=== PATIENT | male | born 1935 | race Caucasian/White ===

== ENCOUNTER → 2021-06-29 | Outpatient (CLI) | payer MEDICARE ==
--- NOTE | 2021-06-29 12:24 | REP ---
INDICATION: SOB. COMPARISON: No comparison chest x-ray. TECHNIQUE: Two views.. FINDINGS: The lungs are well inflated and free of infiltrate. Pleural angles are sharp. The heart is near the upper range of normal in size. Cardiothoracic ratio measures 52.0%. The thoracic aorta is calcific and tortuous. No acute bony abnormality is seen. Pulmonary vasculature is not increased. There is a granulomatous calcification in the right lung apex. IMPRESSION: No active disease. Borderline heart size. Prior sternotomy. <Electronically signed by Castro Hameed > 06/29/21 [id number]
== END ==
LOC: M CLY 11:23
PROVIDERS: ATTEND Nurse Practitioner Family
DX: R06.02 Shortness of breath (principal)

== ENCOUNTER → 2021-06-29 | Outpatient (CLI) | payer BC, MEDICARE | LOC: M LABSMTC 10:39 | PROVIDERS: ATTEND Ophthalmology | DX: Z11.52 Encounter for screening for COVID-19 (principal) ==

== ENCOUNTER 2021-08-31 10:49 | Inpatient (IN) | payer MEDICARE ==
[~2021-08-31] VITALS: Ht 182.9 cm; Wt 76.3 kg
[2021-08-31 12:05] LABS: VENOUS BASE EXCESS -4.8 (-2.0-2.0); VENOUS HCO3 20.1 MEQ/L (23.0-27.0); VENOUS O2 SATURATION 90.7 % (60.0-80.0); VENOUS PARTIAL PRESSURE CO2 36.3 mmHg (38.0-50.0); VENOUS PARTIAL PRESSURE O2 57.2 mmHg (30.0-50.0); VENOUS PH 7.361 UNITS (7.330-7.430); VENOUS STANDARD HCO3 20.4 MEQ/L; VENOUS TOTAL CO2 21.2 MEQ/L (24.0-28.0)
[2021-08-31 12:19] LABS: BASO % 0.1 % (0.0-1.0); HEMATOCRIT 29.7 % (42.0-52.0); LYMPH # 0.8 10^3/uL (1.5-5.0); LYMPH % 5.3 % (24.0-44.0); MEAN CORPUSCULAR HEMOGLOBIN 32.9 pg (27.0-33.0); MEAN CORPUSCULAR HGB CONC 33.7 g/dl (32.0-36.5); MEAN CORPUSCULAR VOLUME 97.7 fl (80.0-96.0); MONO % 19.7 % (2.0-8.0); NEUTROPHILS % 73.7 % (36.0-66.0); PLATELET COUNT, AUTOMATED 117 10^3/uL (150-450); RED BLOOD COUNT 3.04 10^6/uL (4.30-6.10); WHITE BLOOD COUNT 14.9 10^3/uL (4.0-10.0)
--- NOTE | 2021-08-31 12:27 | REP ---
INDICATION: Altered Mental Status. COMPARISON: None. TECHNIQUE: Axial soft tissue and bone windows with coronal reconstructions provided FINDINGS: Lateral ventricles are midline symmetric and dilated but in proportion to the diffuse moderately severe cerebral atrophy. Third and 4th ventricles are also dilated in proportion. There is periventricular and subcortical low-density white matter change bilaterally suggesting chronic small vessel ischemic disease. Basal ganglia are symmetric and without acute finding. There is no vascular territory infarct, intra or extra-axial hemorrhage, mass or mass effect. Brainstem was intact. Cerebellum shows atrophy without mass or posterior fossa hemorrhage. Vascular calcifications are noted in both carotid siphons. Mastoid aeration is symmetric and normal. Visualized sinuses are clear. The skull base and calvarium show no fracture or focal lesion. IMPRESSION: 1. Moderately severe cortical atrophy and ventriculomegaly in proportion, age-appropriate. 2. No acute infarct, intracranial hemorrhage, mass, mass effect or edema. 3. Chronic small vessel white matter ischemic changes. 4. Skull base with mastoid and visualized sinuses unremarkable. Calvarium intact. Some atherosclerotic calcifications of the carotid siphon. Otherwise negative. <Electronically signed by Calderon Doshi > 08/31/21 [id number]
[2021-08-31 12:44] LABS: OSMOLALITY SERUM 304 MOSM/KG (280-301)
[2021-08-31 12:49] LABS: MONO # 2.9 10^3/uL (0.0-0.8)
[2021-08-31 12:50] LABS: RSV AMPLIFICATION NEGATIVE (NEGATIVE)
[2021-08-31 12:51] LABS: ALBUMIN 2.4 GM/DL (3.2-5.2); ALT/SGPT 101 U/L (12-78); BILIRUBIN,DIRECT 0.2 MG/DL (0.0-0.2); BILIRUBIN,TOTAL 0.4 MG/DL (0.2-1.0); BLOOD UREA NITROGEN 61 MG/DL (7-18); CALCIUM LEVEL 8.3 MG/DL (8.8-10.2); CARBON DIOXIDE LEVEL 20 MEQ/L (21-32); CHLORIDE LEVEL 109 MEQ/L (98-107); CK-MB VALUE MASS 4.1 NG/ML (<3.6); CPK CREATINE PHOSPHOKINASE 271 U/L (39-308); CREATININE FOR GFR 2.08 MG/DL (0.70-1.30); GLOMERULAR FILTRATION RATE 32.2 (>35); GLUCOSE, FASTING 105 MG/DL (70-100); MB/CK RELATIVE INDEX 1.51 (< OR =4); POTASSIUM SERUM 3.8 MEQ/L (3.5-5.1); SODIUM LEVEL 139 MEQ/L (136-145); THYROID STIMULATING HORMONE 0.632 uIU/ML (0.358-3.740); TOTAL PROTEIN 5.8 GM/DL (6.4-8.2); TROPONIN I < 0.02 NG/ML (< 0.10)
[2021-08-31] MEDS ORDERED: NS 1,000 ML IV ONE (14:40)
[2021-08-31] MEDS ORDERED: NS 1,000 ML IV SCH (14:45)
--- NOTE | 2021-08-31 15:17 | REP ---
INDICATION: fall. COMPARISON: 06/29/2021. TECHNIQUE: Single portable AP view of the chest was performed. FINDINGS: There is no acute infiltrate or pulmonary edema. There is mild bibasilar fibro atelectatic change. There is a calcified granuloma in the right upper lobe. The heart is not significantly enlarged. The mediastinal silhouette is unremarkable. The visualized osseous structures are intact.Multiple sternal wires are present. IMPRESSION: No acute pulmonary disease. <Electronically signed by Johnny Schmitt > 08/31/21 [id number]
[2021-08-31] MEDS ORDERED: FLON1SPR NARES (15:41)
[2021-08-31] MEDS ORDERED: COSO1SOL3 OU (15:41)
[2021-08-31] MEDS ORDERED: COLC0.6T47 PO (15:41)
[2021-08-31] MEDS ORDERED: RAMI1CAP21 PO (15:41)
[2021-08-31] MEDS ORDERED: CETI-24 PO (15:41)
[2021-08-31] MEDS ORDERED: AMLO1TAB24 PO (15:41)
[2021-08-31] MEDS ORDERED: ASPI81TA26 PO (15:41)
[2021-08-31] MEDS ORDERED: ROSU20TA5 PO (15:41)
[2021-08-31] MEDS ORDERED: FINA5TAB2 PO (15:41)
[2021-08-31] MEDS ORDERED: OYST500T92 PO (15:41)
[2021-08-31] MEDS ORDERED: TRAZ-186 PO (15:41)
[2021-08-31] MEDS ORDERED: DOCU100C16 PO (15:41)
[2021-08-31] MEDS ORDERED: QC A650T3 PO (15:41)
[2021-08-31] MEDS ORDERED: FLOM0.4C39 PO (15:41)
[2021-08-31] MEDS ORDERED: VITMTA PO (15:41)
[2021-08-31] MEDS ORDERED: VENTAER INH (15:41)
[2021-08-31] MEDS ORDERED: ISOS1TAB36 PO (15:41)
[2021-08-31] MEDS ORDERED: PREDOPD OU (15:41)
[2021-08-31] MEDS ORDERED: REFR1GEL OU (15:41)
[2021-08-31] MEDS ORDERED: NITR4TASL SL (15:41)
[2021-08-31] MEDS ORDERED: HOME MED LIST COMPLETE! XX SCH (15:45)
--- NOTE | 2021-08-31 16:06 | REP ---
INDICATION: SHAY. COMPARISON: None. TECHNIQUE: Real-time sonographic evaluation of the kidneys is performed. FINDINGS: There is increased echotexture of the kidneys suggesting medical renal disease. There is no hydronephrosis bilaterally. There is a cyst of the upper pole the right kidney 2.1 x 1.7 x 1.9 cm. The right kidney measures 10.8 x 3.6 x 5.2 cm. Left renal dimensions are 10.1 x 3.9 x 4.9 cm. The urinary bladder is unremarkable. Ureteral jets could not be visualized in the urinary bladder with Doppler color evaluation. IMPRESSION: Echogenic kidneys suggests medical renal disease. No hydronephrosis. <Electronically signed by Johnny Schmitt > 08/31/21 [id number]
--- NOTE | 2021-08-31 16:12 | HPEPDOC ---
[facility] Medical History & Physical Date of Admission Aug 31, 2021 Date of Service: Aug 31, 2021 History and Physical CHIEF COMPLAINT: "My legs gave out. 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 Patient has been using the furniture in his bedroom to get around and despite using his walker had fallen 7 times without any head trauma or loss of consciousness. Patient denies any chest pain pressure tightness palpitations but he did notice some dizziness prior to the fall he has had increasing confusion feeling like "things are not where they usually are." He has had poor coordination for the past 2 weeks he denied any nausea vomiting diarrhea abdominal pain bright red blood per rectum melena black tarry stools dysuria urgency frequency. In the emergency room he was found to have a creatinine of 2, afebrile, ekg sinus, chest x-ray no acute disease CT of the head negative. Hospitalist was asked to admit the patient for recurrent falls. PAST MEDICAL HISTORY: CAD [place] CABG x3 vessels glaucoma bilateral eye blindness dyslipidemia hypertension UTI benign prostatic hypertrophy actinic keratosis melanoma hemorrhoid hematuria anemia of chronic disease seasonal allergies tendinitis psoriasis skin cancer PAST SURGICAL HISTORY: CABG right eye, right eye drain for glaucoma SOCIAL HISTORY: Retired lives with at home denies recreational drug use tobacco or alcohol use FAMILY HISTORY: Noncontributory due to advanced age ALLERGIES: Please see below. REVIEW OF SYSTEMS: 10 point review of systems negative aside from positive findings in HPI HOME MEDICATIONS: Please see below. PHYSICAL EXAMINATION: VITAL SIGNS: See below GENERAL APPEARANCE: Postop right eye. Legally blind bilaterally. Speaks in full sentences no distress HEENT: No JVD thyromegaly cervical lymphadenopathy carotid bruit CARDIOVASCULAR: S1-S2 regular rate rhythm no S3 LUNGS: Clear to auscultation no wheezing rales or rhonchi ABDOMEN: Positive bowel sounds soft nontender nondistended EXTREMITIES: Multiple bruising bilateral upper and lower extremities particularly the elbow on the right no pitting edema LABORATORY DATA: See below. IMAGING: See below MICROBIOLOGY: Please see below. 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 Patient has been using the furniture in his bedroom to get around and despite using his walker had fallen 7 times without any head trauma or loss of consciousness. Patient denies any chest pain pressure tightness palpitations but he did notice some dizziness prior to the fall he has had increasing confusion feeling like "things are not where they usually are." He has had poor coordination for the past 2 weeks he denied any nausea vomiting diarrhea abdominal pain bright red blood per rectum melena black tarry stools dysuria urgency frequency. In the emergency room he was found to have a creatinine of 2, afebrile, chest x- ray no acute disease CT of the head negative. Hospitalist was asked to admit the patient for recurrent falls. Recurrent falls/gait imbalance/debility -Patient complains of his legs giving out on him. -Check MRI of the lumbar spine, MRI of the brain rule out cerebellar CVA -Assisted ambulation, fall precautions, activity as tolerated, PT OT evaluation. -Encourage early ambulation with assistance -Check orthostasis -Due to complaints of dizziness we will check a 2D echo Acute kidney injury Baseline creatinine of 1.2 with acute metabolic acidosis -In the setting of chronic benign prostatic hypertrophy. -IV fluid trial. -Check renal ultrasound rule out hydronephrosis. -Strict I's and O's. Daily weights. Renally dose all medications. Avoid nephrotoxins. -Check postvoid residual. -Continue home medications Anemia of chronic disease -Check iron studies, reticulocyte count, peripheral blood smear, stool for blood CAD history of CABG/[place] -Resume home meds bilateral eye blindness -Risk factor for recurrent falls PT OT dyslipidemia -Resume home meds hypertension -Check for orthostatic hypotension avoid diuretics if positive benign prostatic hypertrophy actinic keratosis/history of melanoma/history of psoriasis hemorrhoid seasonal allergies History of tendinitis History of skin cancer Vital Signs Vital Signs Date Time Temp Pulse Resp B/P (MAP) Pulse Ox O2 Delivery O2 Flow Rate FiO2 08/31/21 15:22 98 08/31/21 15:07 97 08/31/21 14:15 142/75 (97) 08/31/21 11:37 98.2 Laboratory Data Labs 24H Laboratory Tests 2 08/31/21 11:50: Immature Granulocyte % (Auto) 1.2, Neutrophils (%) (Auto) 73.7H, Lymphocytes (%) (Auto) 5.3L, Monocytes (%) (Auto) 19.7H, Eosinophils (%) (Auto) 0.0, Basophils (%) (Auto) 0.1, Neutrophils # (Auto) 11.0H, Lymphocytes # (Auto) 0.8L, Monocytes # (Auto) 2.9H, Eosinophils # (Auto) 0.0, Basophils # (Auto) 0.0, Nucleated Red Blood Cells % (auto) 0.0, Blood Gas Bicarbonate Standard 20.4, Venous Blood pH 7.361, Venous Blood Partial Pressure CO2 36.3L, Venous Blood Partial Pressure O2 57.2H, Venous Blood Total Carbon Dioxide 21.2L, Venous Blood HCO3 20.1L, Venous Blood Oxygen Saturation 90.7H, Venous Blood Base Excess -4.8L, Anion Gap 10, Glomerular Filtration Rate 32.2L, Osmolality 304H, Calcium Level 8.3L, Total Bilirubin 0.4, Direct Bilirubin 0.2, Aspartate Amino Transf (AST/SGOT) 121H, Alanine Aminotransferase (ALT/SGPT) 101H, Alkaline Phosphatase 101, Ammonia < 10, Total Creatine Kinase 271, Creatine Kinase MB 4.1H, Creatine Kinase MB Relative Index 1.51, Troponin I < 0.02, Total Protein 5.8L, Albumin 2.4L, Albumin/Globulin Ratio 0.7, Thyroid Stimulating Hormone (TSH) 0.632 08/31/21 11:51: Coronavirus (COVID-19)(PCR) NEGATIVE, Influenza Type A (RT-PCR) NEGATIVE, Influenza Type B (RT-PCR) NEGATIVE, Respiratory Syncytial Virus (PCR) NEGATIVE CBC/BMP Laboratory Tests 08/31/21 11:50 Home Medications Scheduled Acetaminophen (Acetaminophen 8 Hour) 650 Mg Tablet.er, 650 MG PO Q8H Amlodipine Besylate (Amlodipine Besylate) 5 Mg Tablet, 5 MG PO QHS Aspirin (Aspirin EC) 81 Mg Tablet.dr, 81 MG PO DAILY Calcium Carbonate/Vitamin D3 (Calcium 500-Vit D3 200 Tablet) 1 Each Tablet, 1 TAB PO BID TAKES AM/1430 Cetirizine HCl (Cetirizine HCl) 10 Mg Tablet, 10 MG PO DAILY Colchicine (Colchicine) 0.6 Mg Tablet, 0.3 MG PO DAILY Docusate Sodium (Docusate Sodium) 100 Mg Capsule, 100 MG PO BID Dorzolamide HCl/Timolol Maleat (Cosopt Eye Drops) 10 Ml Drops, 1 DROP OU BID Finasteride (Finasteride) 5 Mg Tablet, 5 MG PO DAILY Fluticasone Propionate (Flonase Allergy Relief) 9.9 Ml [place].susp, 2 SPRAY NARES DAILY Isosorbide Mononitrate (Isosorbide Mononitrate ER) 60 Mg Tab.er.24h, 60 MG PO DAILY Multivitamins (Thera M Plus Tablet) 1 Each Tablet, 1 TAB PO BID Prednisolone Acetate (Prednisolone Acetate 1% Opth Susp) 5 Ml Drops.susp, 1 DROP OU Q12H Ramipril (Ramipril) 1.25 Mg Capsule, 1.25 MG PO QHS Rosuvastatin Calcium (Rosuvastatin Calcium) 20 Mg Tablet, 20 MG PO QHS Tamsulosin HCl (Flomax) 0.4 Mg Capsule, 0.4 MG PO QHS Trazodone HCl (Trazodone HCl) 50 Mg Tablet, 50 MG PO QHS Scheduled PRN Albuterol Sulfate (Ventolin Hfa) 18 Gm Hfa.aer.ad, 2 PUFFS INH TID PRN for SOB/WHEEZING Carboxymethylcellulos/Glycerin (Refresh Optive Gel Eye Drops) 10 Ml Drops.gel, 1 DROP OU QID PRN for DRY EYES Nitroglycerin (Nitrostat) 0.4 Mg Tab.subl, 0.4 MG SL Q5MP PRN for CHEST PAIN Allergies Coded Allergies: meperidine (Verified Adverse Reaction, Mild, prolonged sleep, 08/31/21) A-FIB/CHADSVASC A-FIB History Current/History of A-Fib/PAF?: No Current PO Anticoag Therapy: No Age/Risk Factor Scoring CHADSVASC: CHADSVASC Response (Comments) Value Age Risk Factor Age >/= 75 years old 2 Gender Risk Factor Male 0 Hx of CHF No 0 Hx of HTN Yes 1 Hx of Stroke/TIA/or VTE No 0 Hx of Diabetes No 0 Hx of Vascular Disease No 0 Total 3 Treatment Treatment ordered: NONE RACIEL BRAGA MD Aug 31, 2021 16:01
[2021-08-31 19:50] LABS: FERRITIN 933 NG/ML (26-388); IRON (FE) 15 UG/DL (65-175); PERCENT SATURATION 10.3 % (19.7-50.0); TOTAL IRON BINDING CAPACITY 146 UG/DL (250-450)
--- NOTE | 2021-08-31 21:00 | REPVR ---
PROCEDURE INFORMATION: Exam: MR Head Without Contrast Exam date and time: 08/31/2021 7:22 PM Age: 86 years old Clinical indication: Weakness, extremity; Bilateral; Additional info: Le weakness s/o spinal stenosis TECHNIQUE: Imaging protocol: MR of the head without contrast. COMPARISON: CT Head without contrast 08/31/2021 11:59 AM FINDINGS: Brain: Nonspecific T2/FLAIR hyperintensities of the periventricular and deep subcortical white matter, most likely secondary to chronic small vessel ischemic change. No intracranial hemorrhage or extra-axial fluid collection. No evidence of mass effect or midline shift. No restricted diffusion to suggest acute infarct. Cerebral ventricles: Prominence of the ventricles and sulci, likely attributed to parenchymal volume loss. Bones/joints: Unremarkable. Paranasal sinuses: Left maxillary sinus retention cyst. Mastoid air cells: No mastoid effusion. Orbital cavity: Unremarkable. Soft tissues: Unremarkable. IMPRESSION: 1. No acute intracranial pathology. 2. Chronic findings, as above. Electronically signed by: Ervin Simmons On 08/31/2021 21:00:23 PM
--- NOTE | 2021-08-31 21:03 | REPVR ---
PROCEDURE INFORMATION: Exam: MR Lumbar Spine Without Contrast Exam date and time: 08/31/2021 7:46 PM Age: 86 years old Clinical indication: Weakness; Additional info: Le weakness s/o spinal stenosis TECHNIQUE: Imaging protocol: Multiplanar magnetic resonance images of the lumbar spine without intravenous contrast. COMPARISON: RENAL US 08/31/2021 3:35 PM FINDINGS: Limitations: Examination is limited by motion artifact. Vertebral body heights are maintained. No abnormal marrow signal. No cord compression. No abnormal cord signal. Conus medullaris terminates at the L1 level. Paravertebral soft tissues are unremarkable. L1-L2: No significant canal or foraminal narrowing. L2-L3: Broad-based disc bulge and facet hypertrophy cause mild canal narrowing and mild bilateral foraminal narrowing. L3-L4: Broad-based disc bulge and facet hypertrophy cause mild canal narrowing and mild bilateral foraminal narrowing. L4-L5: Broad-based disc bulge and facet hypertrophy cause mild canal narrowing and [id number] bilateral foraminal narrowing. L5-S1: Broad-based disc bulge and facet hypertrophy cause mild canal narrowing and [id number] bilateral foraminal narrowing. IMPRESSION: 1. No acute findings in the lumbar spine. 2. [id number] spondylotic changes of the lumbar spine, as detailed above. Electronically signed by: Ervin Simmons On 08/31/2021 21:03:08 PM
[2021-08-31 22:50] VITALS: BP 150/78
[2021-08-31] MEDS: NS 1,000 ML IV SCH (23:32)
[2021-09-01] MEDS ORDERED: ALBUTEROL 90 MCG/ACT 8GM HFA INHALER INH PRN (04:40)
[2021-09-01] MEDS: ROSUVASTATIN 10 MG TAB (CRESTOR) PO SCH ×2 (05:05→20:22)
[2021-09-01 05:38] LABS: HEMATOCRIT 31.8 % (42.0-52.0); HEMOGLOBIN 10.7 g/dl (13.5-17.5); MEAN CORPUSCULAR HEMOGLOBIN 32.4 pg (27.0-33.0); MEAN CORPUSCULAR HGB CONC 33.6 g/dl (32.0-36.5); MEAN CORPUSCULAR VOLUME 96.4 fl (80.0-96.0); PLATELET COUNT, AUTOMATED 136 10^3/uL (150-450); WHITE BLOOD COUNT 15.3 10^3/uL (4.0-10.0)
[2021-09-01 06:00] VITALS: BP 114/77
[2021-09-01 06:00] LABS: ALBUMIN 2.3 GM/DL (3.2-5.2); BILIRUBIN,DIRECT 0.2 MG/DL (0.0-0.2); BILIRUBIN,TOTAL 0.6 MG/DL (0.2-1.0); CALCIUM LEVEL 8.2 MG/DL (8.8-10.2); CREATININE FOR GFR 1.57 MG/DL (0.70-1.30); GLOMERULAR FILTRATION RATE 44.6 (>35); POTASSIUM SERUM 3.6 MEQ/L (3.5-5.1)
[2021-09-01 07:26] LABS: LYMPHOCYTES 7 % (16-44); MONOCYTES 16 % (0-5); NEUTROPHILS 77 % (28-66)
[2021-09-01 07:27] LABS: ANISOCYTOSIS 1+; PLATELET ESTIMATE NORMAL (NORMAL)
[2021-09-01] MEDS ORDERED: cefTRIAXone SOD 2 GM in D5W MINI-BAG PLUS 50 ML IV SCH ×2 (08:55→09:00)
[2021-09-01] MEDS ORDERED: ASPIRIN 81MG ENTERIC TABLET PO SCH (09:00)
[2021-09-01] MEDS: ISOSORBIDE MON. (IMDUR) 60 MG XR TAB PO SCH (09:00)
[2021-09-01] MEDS: CALCIUM/VITAMIN D 500 MG TAB PO SCH ×2 (09:38→16:40)
[2021-09-01] MEDS: CETIRIZINE (ZyrTEC) 10 MG TAB PO SCH (09:38)
[2021-09-01] MEDS: DOCUSATE SODIUM 100MG CAPSULE PO SCH ×2 (09:38→20:22)
[2021-09-01] MEDS: MULTIVITAMINS/MINERALS THERAP 1 TAB PO SCH ×2 (09:38→20:22)
[2021-09-01] MEDS: prednisoLONE ACET 1% OPHTH SUSP 5ML OU SCH ×2 (09:39→20:23)
[2021-09-01] MEDS: NS 1,000 ML IV SCH ×3 (09:41→20:22)
[2021-09-01] MEDS: FLUTICASONE PROP 0.05% NASAL SPRAY 16 GM (FLONASE) NARES SCH (09:41)
[2021-09-01] MEDS: GASTROGRAFIN SOLUTION 30ML PO SCH ×2 (10:05→10:32)
[2021-09-01] MEDS: COSOPT OCUMETER PLUS 10ML (DORZOLAMIDE/TIMOLOL) OU SCH ×2 (10:05→20:23)
--- NOTE | 2021-09-01 10:47 | IPN ---
PROGRESS NOTE DATE: 09/01/2021 SUBJECTIVE: The patient had a fever of 101, no complaints of chills, had slight cough, no shortness of breath, no dysuria, urgency, frequency, nausea, headache, diarrhea. OBJECTIVE: Vital signs: Temperature 99.8, T max 101, respiratory rate 17, blood pressure 114/77, 94% on room air, pulse of 104, sinus rhythm. Generally, patient is blind, awake, alert, oriented, answering questions appropriately, flat on the bed while having a bedside echo done. He has no JVD, thyromegaly, cervical lymphadenopathy, dry mucous membranes, no stridor. Lungs: Diminished but no wheezing or rales. Heart: S1, S2, sinus tachycardia. Aortic area has a systolic ejection murmur, 3/6 radiating to the carotid. Abdomen: Soft, nontender, nondistended, positive bowel sounds. Extremities: No pitting edema. Laboratory data, imaging studies, microbiology have been reviewed, notable for a white count of 15,000, creatinine of 1.5 from admission creatinine of 2.08, AST elevated at 154, ALT of 140. Hepatitis serology: Pending. ASSESSMENT AND PLAN: This is an 86-year-old male with history of bilateral blindness with glaucoma, status post right eye drain, CABG x3, moderate aortic stenosis, CAD and hypercholesterolemia, hypertension, prior history of UTI and BPH, presented with recurrent falls at home seven times in the past two weeks and twice the day before hospital presentation. The patient was found to have a creatinine of 2 from baseline of 1.2, admitted for dehydration with acute kidney injury, developed a fever of 101, empirically treated for UTI, awaiting urine culture result. IMPRESSION: 1. Recurrent falls. The patient's MRI of the brain, MRI of the lumbar spine are negative. Assisted ambulation, fall precautions, activity as tolerated, PT, OT evaluation, encourage early ambulation but with assistance. Orthostasis were negative. Avoid hypotension due to moderate aortic stenosis which has caused recurrent syncope, CHF and acute coronary syndrome. 2. Moderate aortic stenosis, follows with Dr. Way in the office. Await official 2D echo report, currently on IV fluids. Patient was dehydrated with a creatinine of 2.05 which could have precipitated dizziness subsequently causing the mechanical falls at home. The patient should avoid hypotension. Therefore, holding parameters have been placed on his isosorbide, encourage oral intake, still on IV fluids with improving creatinine. 3. Acute kidney injury. Baseline creatinine of 1.2 with acute metabolic acidosis, resolving. The patient has history of chronic benign prostatic hypertrophy. Renal ultrasound showed hydronephrosis, still on IV fluids with improvement, renally dose all medications and avoid nephrotoxins. Holding parameters have been placed on the isosorbide to prevent hypotension in light of moderate aortic stenosis. 4. Anemia of chronic disease. No acute indication for RBC transfusion. Denies any active GI bleed. 5. History of CAD, CABG, [place]. Resumed on home medications but holding parameters placed due to moderate aortic stenosis to prevent hypotension. 6. Dyslipidemia. Resumed on home medications. 7. Hypertension, controlled. 8. History of BPH. Avoid orthostasis and hypotension. 9. Legally blind causing mechanical falls. Patient's is not home 20/05. He may need placement. PFS consulted.
[2021-09-01] MEDS ORDERED: SODIUM CHLORIDE NASAL 0.65% SPRAY BTL (OCEAN) PRN (12:00)
[2021-09-01] MEDS ORDERED: ACETAMINOPHEN 500 MG TAB PO ONE (12:00)
[2021-09-01 12:44] LABS: HEPATITIS B CORE ANTIBODY IGM NEGATIVE (NEGATIVE); HEPATITIS B SURFACE ANTIGEN NEGATIVE (NEGATIVE); HEPATITIS C VIRUS ABY INDEX < 0.0 INDEX (<0.8)
--- NOTE | 2021-09-01 13:04 | ECHO ---
ECHOCARDIOGRAM DATE OF PROCEDURE: 09/01/2021 Age: Gender: Height: 183 cm Weight: 80 kg REFERRING PHYSICIAN: Dr. Marilu Macdonald. INDICATION: Abnormal ECG. MEASUREMENTS: 2D Measurements: LVOT 2.1 cm Interventricular septum 1.06 cm Posterior wall 1.10 cm Left ventricle diastole 4.6 cm Left ventricle systole 3.5 cm Left atrium 4.4 cm Left atrium volume index 78 cm Aortic root 3.5 cm Proximal ascending aorta 3.6 cm Doppler Measurements: Moderate aortic stenosis Mild aortic regurgitation Aortic valve velocity 365 cm/s Peak aortic valve gradient 53 mmHg Mean aortic valve gradient 39 mmHg Aortic valve VTI 71.4 cm LVOT velocity 105 cm/s LVOT VTI 19.4 cm Very mild mitral regurgitation No mitral stenosis Mitral E velocity 99.8 cm/s Mitral A velocity 127 cm/s Mitral deceleration time 90 msec Trace tricuspid regurgitation Very mild pulmonic regurgitation Pulmonary artery acceleration time 81 msec Pulmonary artery systolic pressure 43 mmHg MITRAL ANNULAR TISSUE DOPPLER E prime septal 5.6 cm/s, E prime lateral 8.5 cm/s DESCRIPTION: Rhythm was sinus. This was a moderately technically difficult echocardiogram. Subcostal images were technically difficult. No pericardial effusion. This was a 2D, M-mode, color flow Doppler, and pulsed wave Doppler examination including mitral annular tissue Doppler. CONCLUSIONS: 1. Severe focal thickening and focal calcific deposits of a 3-cusp aortic valve. Moderate reduction in aortic cusp mobility. Moderate aortic stenosis and mild aortic regurgitation. 2. Normal left ventricle internal dimensions and wall thickness. Normal regional LV wall motion and wall thickening. Normal LV systolic function. LVEF 55-60% by visual assessment. Grade 1 LV diastolic dysfunction (impaired relaxation filling pattern). 3. Severe left atrial dilatation by left atrial volume index. 4. Suggestive of moderate elevation of pulmonary artery systolic pressure. 5. Very mild mitral annular calcification with very mild mitral regurgitation. MTDD
[2021-09-01] MEDS: SODIUM CHLORIDE 0.9% NASAL GEL 15GM (AYR) SCH ×3 (13:11→20:23)
--- NOTE | 2021-09-01 13:22 | REP ---
INDICATION: fever or unknown origin. COMPARISON: None. TECHNIQUE: Noncontrast scanning through chest with coronal and sagittal reconstructions provided FINDINGS: The lung stratton are well inflated. There is no pleural effusion, pleural thickening, acute infiltrate or parenchymal mass. There is calcified granuloma in the right upper lobe in the subpleural region on image 26. No other nodules are identified. Heart is not enlarged there is atherosclerotic calcification of the aorta without aneurysm. There are calcified right hilar lymph nodes. Coronary artery calcifications are noted. Calcifications at the aortic root and valve plane are seen no pathologic sized mediastinal or hilar adenopathy. No axillary or supraclavicular mass sternotomy wires are seen the healed sternum. Mediastinal clips evident. Clavicles, visualized scapulae, humeral heads, ribs, spine and posterior elements are without acute fracture or destructive lesion. There are degenerative changes in the spine and shoulders. No hiatal hernia. The upper abdominal structures will be discussed in the CT abdomen report to follow. IMPRESSION: 1. Lung stratton without any acute finding. Some old granulomatous disease in right hilar nodes as well as a calcified granuloma in the right upper lobe. 2. Prior sternotomy with mediastinal clips, some coronary calcifications and no aortic aneurysm. 3. Some degenerative changes in the spine. No acute bony finding. No significant abnormality. <Electronically signed by Calderon Doshi > 09/01/21 [id number]
--- NOTE | 2021-09-01 13:36 | REP ---
INDICATION: fever or unknown origin. COMPARISON: No pertinent prior studies here. TECHNIQUE: Oral Gastrografin mixture 10 mL in 290 mL flavored water for 2 doses per our bowel contrast protocol. Then scanning through abdomen and pelvis with coronal and sagittal reconstructions. FINDINGS: CT abdomen: There is no hiatal hernia. Stomach with some oral contrast within but no gross mass. No hepatomegaly or biliary dilatation. The gallbladder is quite distended and adjacent to the gallbladder there is hypodensity in the liver in an area 4.2 by 2.3 by 3.6 cm. I am suspicious that this represents an hepatic abscess. Some pericholecystic stranding of fat but no generalized ascites. There are no calcifications in the gallbladder but there are a few scattered calcifications in the liver likely old granulomas. Common duct in the howard hepatis and pancreas grossly intact. Adrenal glands grossly intact. Spleen unremarkable. Scattered stool and gas in the colon without signs of colitis or diverticulitis. Appendix is seen and normal. Atherosclerotic calcification of the aorta with mild infrarenal dilatation up to 3.3 cm AP diameter of the abdominal aorta. Small bowel loops show oral contrast throughout. Lung window review of all CT slices shows no perforation or free air. Bone windows show degenerative changes in the lower lumbar spine the less in the upper lumbar and thoracic region without compression fractures. Facet arthropathy lower lumbar spine. Lower ribs intact. CT pelvis: Sacrum, SI joints pelvis and hips show some minor degenerative change without destructive lesion or fracture. Distal left colon and sigmoid without acute finding. Small bowel loops with oral contrast and unremarkable atherosclerotic calcification and ectasia of the iliac vessels without aneurysm. No pelvic lymphadenopathy or free fluid. Bladder partially filled and the prostate elevates its base. No pelvic lymphadenopathy or free fluid. No ventral or inguinal hernia. Few scattered diverticula in the sigmoid. IMPRESSION: 1. Gallbladder distended with hyperdense bile and pericholecystic edema in the fat surrounding and also a 4.2 x 3.6 x 2.2 cm subcapsular low-density focus in the liver that is suspicious for liver abscess in this patient with fever. No biliary dilatation or adjacent ascites. I see no calcified gallstones. Pancreas, adrenal glands, kidneys and spleen grossly intact. No colitis, diverticulitis stricture or mass. 2. No adenopathy. Bladder without abnormality except for enlargement of the prostate elevating it is base. No stone or dilated ureter. <Electronically signed by Calderon Doshi > 09/01/21 [id number]
[2021-09-01 14:00] VITALS: BP 125/64
--- NOTE | 2021-09-01 15:46 | IPNPDOC ---
Date Seen The patient was seen on 09/01/21. Progress Note addendum to progress note: fever: Ct abd/pelvis 09/01/21 1. Gallbladder distended with hyperdense bile and pericholecystic edema in the fat surrounding and also a 4.2 x 3.6 x 2.2 cm subcapsular low-density focus in the liver that is suspicious for liver abscess in this patient with fever. No biliary dilatation or adjacent ascites. I see no calcified gallstones. Pancreas, adrenal glands, kidneys and spleen grossly intact. No colitis, diverticulitis stricture or mass. 2. No adenopathy. Bladder without abnormality except for enlargement of the prostate elevating it is base. No stone or dilated ureter. <Electronically signed by Calderon Doshi > 09/01/21 1332 plan: increase abx coverage to include anaerobes. dc ceftriaxone iv zosyn renally dosed. surgical consult to determine need for drain. VS, I&O, 24H, Fishbone Vital Signs/I&O Vital Signs Date Time Temp Pulse Resp B/P (MAP) Pulse Ox O2 Delivery O2 Flow Rate FiO2 09/01/21 14:00 97.3 89 18 125/64 (84) 97 Room Air I&O- Last 24 Hours up to 6 AM 09/01/21 06:00 Intake Total 1360 ml Output Total 1100 ml Balance 260 ml Laboratory Data 24H LABS Laboratory Tests 2 08/31/21 23:35: Lactic Acid Level 0.8 09/01/21 04:48: Urine Color YELLOW, Urine Appearance CLEAR, Urine pH 6.0, Urine Specific [place] 1.011, Urine Protein 2+H, Urine Glucose (UA) NEGATIVE, Urine Ketones NEGATIVE, Urine Blood 3+H, Urine Nitrite NEGATIVE, Urine Bilirubin NEGATIVE, Urine Urobilinogen 0.2, Urine Leukocyte Esterase NEGATIVE, Urine WBC (Auto) 12H, Urine RBC (Auto) 11H, Urine Hyaline Casts (Auto) 0, Urine Bacteria (Auto) NEGATIVE, Urine Squamous Epithelial Cells 0, Urine Sperm (Auto) 09/01/21 05:03: Neutrophils (%) (Auto) , Nucleated Red Blood Cells % (auto) 0.0, Neutrophils 77H, Lymphocytes (Manual) 7L, Monocytes (Manual) 16H, Anisocytosis 1+, Platelet Estimate NORMAL, Anion Gap 6L, Glomerular Filtration Rate 44.6, Calcium Level 8 .2L, Total Bilirubin 0.6, Direct Bilirubin 0.2, Aspartate Amino Transf (AST/SGOT) 154H, Alanine Aminotransferase (ALT/SGPT) 140H, Alkaline Phosphatase 133H, Total Protein 6.0L, Albumin 2.3L, Albumin/Globulin Ratio 0.6 09/01/21 10:50: Hepatitis A IgM Antibody NEGATIVE, Hepatitis B Surface Antigen NEGATIVE, Hepatitis B Core IgM Antibody NEGATIVE, Hepatitis C Antibody Index < 0.0 CBC/BMP Laboratory Tests 09/01/21 05:03 Microbiology Microbiology 09/01/21 Stool Occult Blood (CAL) - Final, Complete 09/01/21 Urine Culture, Received Pending 08/31/21 Blood Culture, Received Pending 08/31/21 Blood Culture, Received Pending RACIEL BRAGA MD Sep 01, 2021 15:46
[2021-09-01] MEDS ORDERED: guaiFENesin DM LIQ 10ML UD PO ONE (16:05)
[2021-09-01] MEDS: PIPERACILLIN/TAZOBACTAM SOD 2.25 GM in D5W MINI-BAG PLUS 50 ML IV SCH ×2 (16:40→23:16)
[2021-09-01] MEDS: TAMSULOSIN 0.4 MG CAP PO SCH (20:22)
[2021-09-01] MEDS: guaiFENesin DM LIQ 10ML UD PO PRN (20:23)
[2021-09-01] MEDS: FINASTERIDE 5 MG TAB PO SCH (20:25)
--- NOTE | 2021-09-01 20:38 | ECGEPIP ---
[facility] - ED Test Date: 2021-08-31 Pat Name: NEIL NOVAK Department: Room: - Gender: Male Medical Oncologist: JOSE RAUL : 1935 Requested By: Diana Dorman Order Number: [id number] Reading MD: Diana Dorman Measurements Intervals [place] Rate: 88 P: 41 AL: 190 QRS: -35 QRSD: 116 T: 74 QT: 358 QTc: 433 Interpretive Statements Normal sinus rhythm Possible Left atrial enlargement Left axis deviation Left ventricular hypertrophy with QRS widening and repolarization abnormality ( R in aVL , [place] product ) No prior Electronically Signed on 09-01-2021 20:38:31 EDT by Diana Dorman
[2021-09-01 22:00] VITALS: BP 132/82
[2021-09-01] MEDS: BENZONATATE 100MG CAPSULE PO PRN (23:16)
[2021-09-02] MEDS: PIPERACILLIN/TAZOBACTAM SOD 2.25 GM in D5W MINI-BAG PLUS 50 ML IV SCH ×4 (04:19→22:12)
[2021-09-02 06:07] LABS: BASO % 0.1 % (0.0-1.0); EOS # 0.1 10^3/uL (0.0-0.5); EOS % 0.6 % (0.0-3.0); HEMATOCRIT 29.3 % (42.0-52.0); LYMPH % 6.4 % (24.0-44.0); MEAN CORPUSCULAR HEMOGLOBIN 31.9 pg (27.0-33.0); MEAN CORPUSCULAR HGB CONC 34.1 g/dl (32.0-36.5); MEAN CORPUSCULAR VOLUME 93.6 fl (80.0-96.0); MONO # 2.9 10^3/uL (0.0-0.8); MONO % 17.8 % (2.0-8.0); PLATELET COUNT, AUTOMATED 137 10^3/uL (150-450); RED BLOOD COUNT 3.13 10^6/uL (4.30-6.10); WHITE BLOOD COUNT 16.3 10^3/uL (4.0-10.0)
[2021-09-02 06:17] LABS: CALCIUM LEVEL 7.6 MG/DL (8.8-10.2); CREATININE FOR GFR 1.47 MG/DL (0.70-1.30); GLOMERULAR FILTRATION RATE 48.1 (>35); POTASSIUM SERUM 3.5 MEQ/L (3.5-5.1)
[2021-09-02 07:47] LABS: C REACTIVE PROTEIN QUANTITATIV 17.2 MG/DL (0.00-0.30)
[2021-09-02] MEDS ORDERED: VANCOMYCIN HCL 1,000 MG, VIAL MATE ADAPTER 1 EACH in NS 250 ML IV ONE (08:00)
[2021-09-02] MEDS: MULTIVITAMINS/MINERALS THERAP 1 TAB PO SCH ×2 (08:19→20:27)
[2021-09-02] MEDS: CALCIUM/VITAMIN D 500 MG TAB PO SCH ×2 (08:19→14:30)
[2021-09-02] MEDS: ISOSORBIDE MON. (IMDUR) 60 MG XR TAB PO SCH (08:22)
[2021-09-02] MEDS: FINASTERIDE 5 MG TAB PO SCH (08:22)
[2021-09-02] MEDS: CETIRIZINE (ZyrTEC) 10 MG TAB PO SCH (08:22)
[2021-09-02] MEDS: DOCUSATE SODIUM 100MG CAPSULE PO SCH ×2 (08:22→20:27)
[2021-09-02] MEDS: SODIUM CHLORIDE 0.9% NASAL GEL 15GM (AYR) SCH ×4 (08:23→20:27)
[2021-09-02] MEDS: COSOPT OCUMETER PLUS 10ML (DORZOLAMIDE/TIMOLOL) OU SCH ×2 (08:24→20:26)
[2021-09-02] MEDS: prednisoLONE ACET 1% OPHTH SUSP 5ML OU SCH ×2 (08:24→20:26)
[2021-09-02] MEDS: FLUTICASONE PROP 0.05% NASAL SPRAY 16 GM (FLONASE) NARES SCH (08:24)
--- NOTE | 2021-09-02 08:27 | REP ---
INDICATION: sob. COMPARISON: AP CXR 08/31/2021, CT 09/01/2021. TECHNIQUE: AP portable seated FINDINGS: Sternotomy wires again seen. Heart size not enlarged. The aorta is mildly tortuous but without gross aneurysm. No abnormal widening of the mediastinum. Lung stratton are well inflated. There is no pleural effusion, lateral pleural thickening or apical scarring. There is an old the calcified granuloma in the periphery of the right upper lobe unchanged. No dense consolidation or parenchymal mass. Some degenerative changes in the spine and shoulders, mild. IMPRESSION: 1. No acute cardiopulmonary change, stable chest. <Electronically signed by Calderon Doshi > 09/02/21 [id number]
[2021-09-02 09:30] LABS: ERYTHROCYTE SEDIMENTATION RATE 106 mm/hr (0-20)
[2021-09-02] MEDS: NS 1,000 ML IV SCH (09:54)
[2021-09-02] MEDS ORDERED: VANCOMYCIN HCL 500 MG in D5W MINI-BAG PLUS 100 ML IV ONE (10:00)
--- NOTE | 2021-09-02 10:53 | IPN ---
PROGRESS NOTE DATE: 09/02/2021 SUBJECTIVE: Patient is legally blind. Patient has had no fever. T-max was 100.6 at 1:35 on 09/01/2021. Patient denies any chills, nausea, vomiting. He complains of right suprapubic discomfort. Urine output was adequate, was 1750 yesterday, 500 since midnight on I.V. fluids. Creatinine is 1.47. OBJECTIVE: Vital signs: Temperature 98.3, pulse 92, respiratory rate 17, blood pressure 133/75, 96% on room air. General: Awake, alert, oriented to person, place and time. HEENT: He is legally blind. Neck: No JVD, no thyromegaly. Lungs: Diminished, fine crackles. Heart: S1 and S2 sinus rhythm. Abdomen: Soft, slightly tender right suprapubic area. No guarding or rebound. Positive bowel sounds. Extremities: No cyanosis or clubbing. Trace edema bilaterally. LABORATORY DATA/IMAGING STUDIES/MICROBIOLOGY: Please see the chart. Creatinine is 1.47 from admission creatinine of 2.08 and baseline creatinine of 1.2. Chest x-ray: No acute cardiopulmonary process. CT abdomen and pelvis: 4.2 x 3.6 x 2.2 subcapsular low density focus in the liver suspicious for liver abscess. ASSESSMENT: This is an 86-year-old male admitted due to recurrent falls at home on 08/31/2021 feeling like his legs were giving out. MRI of the brain, MRI of the lumbar spine were both negative. Patient developed a fever of 101. CT chest, abdomen and pelvis performed, found a possible liver abscess, given broad spectrum antibiotics renally dosed with I.V. Zosyn and vancomycin. Patient was dehydrated with a creatinine of 2.08 on admission, responded well to I.V. fluids with no fluid overload. Chest x-ray clear of edema with creatinine of 1.37 today. ACTIVE ISSUES/PLAN: 1. Liver abscess: Patient is currently broadly covered with I.V. Zosyn renally dosed by pharmacy. Vanco was added. Infectious disease specialist consult on Saturday. IR drainage on Saturday, Dr. Baeza was consulted. General surgery following, recommended drainage as well as I.V. antibiotics for now. Patient has remained afebrile with appropriate blood pressure, appears to be stable. Continue with antibiotics for now. 2. Recurrent falls: ARU has been consulted. MRI of the brain and MRI lumbar spine are both negative for a cerebellar CVA or a lumbar spinal stenosis that could be causing his lower extremity weakness. Patient is blind and has no support at home. Patient's is in and out of the house and he is left alone most of the time per the patient. ARU consult. Patient is being treated for a liver abscess and acute kidney injury is just resolving all of which were properly contributing to significant debility causing recurrent falls at home. No signs of any fractures on imaging studies. 3. 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 4. History of CAD, ID, CABG times 3 with moderate aortic stenosis noted on 2D echo: At this time patient is volume and preload dependent. Holding parameters have been placed on his isosorbide. We will continue with mild hydration at 75 mL per hour for his renal failure, monitor for respiratory distress otherwise resume all home medications. Aspirin has been held due to drain placement on Saturday. 5. Hypertension: Currently 120-130. Holding parameters placed on patient's isosorbide. 6. Anemia of chronic disease with hemodilution and anemia: Patient received I.V. fluids over the past 2 days. No acute indication for RBC transfusion. 7. Dyslipidemia: Chronic. 8. History of BPH: Resumed on his home medications. Initially his Proscar and finasteride were held due to complaints of recurrent falls. 9. Moderate aortic stenosis: Sees Dr. Way as an outpatient. Avoid severe hypotension or dehydration which could precipitate syncope, congestive heart failure and acute coronary syndrome. ZOLTAN
[2021-09-02] MEDS: guaiFENesin DM LIQ 10ML UD PO PRN ×3 (11:06→22:12)
--- NOTE | 2021-09-02 12:21 | CR.PDOC ---
General Surgery Consultation Date of Consultation 09/02/21 History and Physical CONSULT REPORT FOR: Dr. Macdonald (hospitalist service) REASON FOR CONSULTATION: Cholecystitis, liver abscess HISTORY OF PRESENT ILLNESS: Patient is an 86-year-old male admitted for weakness, frequent falling which has been happening for about 3 weeks now, prog ressive. He was noted to have fever and on febrile work-up he had a CT abdomen pelvis demonstrating cholecystitis as well as what most likely is a liver abscess. He denies any ongoing abdominal pain, nausea or vomiting. He does report some mild anorexia but he has not had any food intolerance, diarrhea, constipation fevers or chills. Currently denies any abdominal discomfort was able to tolerate his clear liquids. He does have leukocytosis. He denies any prior biliary colic type postprandial symptoms. PAST MEDICAL HISTORY: 1. Coronary artery disease status post CABG 2. Glaucoma, patient has bilateral eye blindness 3. Hypertension 4. Dyslipidemia 5. BPH. PAST SURGICAL HISTORY: INCLUDES: 1. CABG 2. Placement of right eye drain for glaucoma ALLERGIES: Please see below. FAMILY HISTORY: Noncontributory. HOME MEDICATIONS: Please see below. REVIEW OF SYSTEMS: Patient lives at home. He has bilateral line blindness. He seems he has very well cooped up with us as he is able to feed himself. He needs help with moving around mainly due to the blindness. Denies any chest pains. Denies any shortness of breath. He denies any prior symptoms similar to this. Denies any prior biliary colic symptoms. No prior history of stroke. Denies dysuria, hematuria nocturia. Denies any history of diabetes or thyroid problems. Denies any bleeding or clotting disorder. PHYSICAL EXAMINATION: VITALS SIGNS: Please see below. GENERAL APPEARANCE: Patient seen laying in bed. He looks fairly comfortable. In no acute distress. SKIN: Warm and dry, no jaundice. HEENT: Normocephalic. Anicteric sclerae. Lips and mucosa appear moist. NECK: [Supple, no thyromegaly. No obvious jugular venous distention]. LUNGS: [Clear to auscultation bilaterally. No wheezing appreciated]. HEART: [No chest wall abnormalities. Regular rate and rhythm with no murmurs appreciated]. ABDOMEN: Abdomen is moderately rounded, soft, mildly distended. Nontender on palpation over the epigastric and right upper quadrant area. EXTREMITIES: No significant extremity edema ANCILLARIES: . LABORATORY DATA: Please see below. IMAGING STUDIES: He had a CT abdomen and pelvis. I reviewed the images and this is suspicious for cholecystitis with distended gallbladder, gallbladder wall thickening. Adjacent to the gallbladder is a possible abscess. No perihepatic abscess.. IMPRESSION AND PLAN: Chronic cholecystitis given that this has been going on for at least 3 weeks now though he was not symptomatic from it in terms of abdominal pain nor systemic inflammatory response save for notable fever also has some mild leukocytosis. He is also noted to have a separate fluid collection next to the gb consistent with possible liver abscess. For the abscess to form if this is related to the cholecystitis this must be ongoing for a few weeks now which is consistent with his complaint that he has been feeling weak for about 3 weeks now. Suggest continue IV antibiotics. He is able to tolerate food he can eat. Suggest scheduling scheduling him for drainage of the liver abscess and placement of cholecystostomy tube on Saturday when the radiologist come back. I told him he would potentially need interval cholecystectomy though he is quite concerned about he will do with his age. He establishes with the [facility] as his primary care doctor and would need optimization and clearance from them later on. Vital Signs Vital Signs Date Time Temp Pulse Resp B/P (MAP) Pulse Ox O2 Delivery O2 Flow Rate FiO2 09/02/21 08:22 133/75 09/02/21 06:00 98.3 92 17 96 Room Air I&Os I&O- Last 24 Hours up to 6 AM 09/02/21 05:59 Intake Total 2890 ml Output Total 1850 ml Balance 1040 ml Laboratory Data Labs 24H Laboratory Tests 2 09/02/21 05:36: Immature Granulocyte % (Auto) 1.1, Neutrophils (%) (Auto) 74.0H, Lymphocytes (%) (Auto) 6.4L, Monocytes (%) (Auto) 17.8H, Eosinophils (%) (Auto) 0.6, Basophils (%) (Auto) 0.1, Neutrophils # (Auto) 12.0H, Lymphocytes # (Auto) 1.0L, Monocytes # (Auto) 2.9H, Eosinophils # (Auto) 0.1, Basophils # (Auto) 0.0, Nucleated Red Blood Cells % (auto) 0.0, Erythrocyte Sedimentation Rate 106H, Anion Gap 9, G lomerular Filtration Rate 48.1, Calcium Level 7.6L, C-Reactive Protein, Quantitative 17.20H 09/02/21 08:27: Methicillin-Resist S.aureus DNA PCR NOT DETECTED CBC/BMP Laboratory Tests 09/02/21 05:36 Microbiology Microbiology 09/01/21 Stool Occult Blood (CAL) - Final, Complete 09/01/21 Urine Culture, Received Pending 08/31/21 Blood Culture - Preliminary, Resulted No growth after 24 hours . All specim... 08/31/21 Blood Culture - Preliminary, Resulted No growth after 24 hours . All specim... Home Medications Scheduled Acetaminophen (Acetaminophen 8 Hour) 650 Mg Tablet.er, 650 MG PO Q8H, (Reported) Amlodipine Besylate (Amlodipine Besylate) 5 Mg Tablet, 5 MG PO QHS, (Reported) Aspirin (Aspirin EC) 81 Mg Tablet.dr, 81 MG PO DAILY, (Reported) Calcium Carbonate/Vitamin D3 (Calcium 500-Vit D3 200 Tablet) 1 Each Tablet, 1 TAB PO BID, (Reported) TAKES AM/1430 Cetirizine HCl (Cetirizine HCl) 10 Mg Tablet, 10 MG PO DAILY, (Reported) Colchicine (Colchicine) 0.6 Mg Tablet, 0.3 MG PO DAILY, (Reported) Docusate Sodium (Docusate Sodium) 100 Mg Capsule, 100 MG PO BID, (Reported) Dorzolamide HCl/Timolol Maleat (Cosopt Eye Drops) 10 Ml Drops, 1 DROP OU BID, (Reported) Finasteride (Finasteride) 5 Mg Tablet, 5 MG PO DAILY, (Reported) Fluticasone Propionate (Flonase Allergy Relief) 9.9 Ml [place].susp, 2 SPRAY NARES DAILY, (Reported) Isosorbide Mononitrate (Isosorbide Mononitrate ER) 60 Mg Tab.er.24h, 60 MG PO DAILY, (Reported) Multivitamins (Thera M Plus Tablet) 1 Each Tablet, 1 TAB PO BID, (Reported) Prednisolone Acetate (Prednisolone Acetate 1% Opth Susp) 5 Ml Drops.susp, 1 DROP OU Q12H, (Reported) Ramipril (Ramipril) 1.25 Mg Capsule, 1.25 MG PO QHS, (Reported) Rosuvastatin Calcium (Rosuvastatin Calcium) 20 Mg Tablet, 20 MG PO QHS, (Reported) Tamsulosin HCl (Flomax) 0.4 Mg Capsule, 0.4 MG PO QHS, (Reported) Trazodone HCl (Trazodone HCl) 50 Mg Tablet, 50 MG PO QHS, (Reported) Scheduled PRN Albuterol Sulfate (Ventolin Hfa) 18 Gm Hfa.aer.ad, 2 PUFFS INH TID PRN for SOB/WHEEZING, (Reported) Carboxymethylcellulos/Glycerin (Refresh Optive Gel Eye Drops) 10 Ml Drops.gel, 1 DROP OU QID PRN for DRY EYES, (Reported) Nitroglycerin (Nitrostat) 0.4 Mg Tab.subl, 0.4 MG SL Q5MP PRN for CHEST PAIN, (Reported) Allergies Coded Allergies: meperidine (Verified Adverse Reaction, Mild, prolonged sleep, 08/31/21) NABEEL GALLARDO MD Sep 02, 2021 12:21
[2021-09-02 14:00] VITALS: BP 135/73
[2021-09-02] MEDS: BENZONATATE 100MG CAPSULE PO PRN ×2 (14:30→22:12)
[2021-09-02 19:07] LABS: ANTINUCLEAR ANTIBODIES DIRECT Negative (Negative)
[2021-09-02] MEDS ORDERED: VANCOMYCIN HCL 1,000 MG, VIAL MATE ADAPTER 1 EACH in NS 250 ML IV SCH (20:00)
[2021-09-02] MEDS: ROSUVASTATIN 10 MG TAB (CRESTOR) PO SCH (20:27)
[2021-09-02] MEDS: TAMSULOSIN 0.4 MG CAP PO SCH (20:27)
[2021-09-02] MEDS ORDERED: ACETAMINOPHEN TAB 650MG DOSE (2X325MG) PO PRN (21:00)
[2021-09-02] MEDS ORDERED: KETOROLAC 30 MG/ML 1ML VIAL IV ONE (21:50)
[2021-09-02 22:00] VITALS: BP 140/64
[2021-09-02] MEDS: LIDOCAINE 5% (LIDODERM) PATCH TD SCH (22:11)
[2021-09-03] MEDS: NS 1,000 ML IV SCH ×2 (01:45→16:16)
[2021-09-03] MEDS: PIPERACILLIN/TAZOBACTAM SOD 2.25 GM in D5W MINI-BAG PLUS 50 ML IV SCH ×4 (05:11→22:39)
[2021-09-03] MEDS: guaiFENesin DM LIQ 10ML UD PO PRN ×4 (05:11→22:39)
[2021-09-03 06:00] VITALS: BP 128/70
[2021-09-03 06:02] LABS: BASO % 0.2 % (0.0-1.0); EOS # 0.3 10^3/uL (0.0-0.5); EOS % 1.8 % (0.0-3.0); HEMATOCRIT 30.4 % (42.0-52.0); HEMOGLOBIN 10.3 g/dl (13.5-17.5); LYMPH % 6.7 % (24.0-44.0); MEAN CORPUSCULAR HEMOGLOBIN 32.2 pg (27.0-33.0); MEAN CORPUSCULAR HGB CONC 33.9 g/dl (32.0-36.5); MONO # 1.4 10^3/uL (0.0-0.8); MONO % 9.6 % (2.0-8.0); NEUTROPHILS # 11.8 10^3/uL (1.5-8.5); NEUTROPHILS % 80.3 % (36.0-66.0); PLATELET COUNT, AUTOMATED 149 10^3/uL (150-450); WHITE BLOOD COUNT 14.7 10^3/uL (4.0-10.0)
[2021-09-03 06:23] LABS: CREATININE FOR GFR 1.51 MG/DL (0.70-1.30); GLOMERULAR FILTRATION RATE 46.7 (>35); POTASSIUM SERUM 3.5 MEQ/L (3.5-5.1)
--- NOTE | 2021-09-03 09:17 | IPN ---
PROGRESS NOTE DATE: 09/03/2021 SUBJECTIVE: The patient has not had any fever. Denies any chills. Today he does not have any discomfort in the right lower quadrant or the suprapubic area. The patient's urine output yesterday was 2.2 L. He has no other complaints. Denies nausea, vomiting, or abdominal pain this morning. OBJECTIVE: VITAL SIGNS: Temperature 98.1, pulse 74, respiratory rate 17, blood pressure 128/70, 98% on room air. GENERAL: The patient is blind. He is in no distress. Speaks in full sentences. NECK: No JVD or thyromegaly. LUNGS: Diminished. HEART: S1, S2. Sinus rhythm. Systolic ejection murmur at the apex radiating to the carotids. ABDOMEN: Soft, nontender, and nondistended with positive bowel sounds. EXTREMITIES: No cyanosis or clubbing. LABORATORY DATA/IMAGING STUDIES/MICROBIOLOGY: Please see the chart. ASSESSMENT: This is an 86-year-old male who lives at home with his who is 82 years old. Presented to the emergency room on 08/31/2021, with complaints of bilateral lower extremity weakness, legs giving out on him, and recurrent falls seven times over the past two weeks and two times the day prior to admission. MRI of the brain and MRI of the lumbar spine were both negative. The patient had a fever of 101. CT chest, abdomen, and pelvis showed a possible liver abscess. The patient was started on intravenous antibiotics. He initially was dehydrated on admission with a creatinine of 2.08 with baseline of 1.2. The patient was given intravenous fluids with creatinine improving, but remains at 1.5 to 1.4. The patient's liver function tests were slightly elevated. Per surgical recommendation, interventional radiology (IR) consulted for liver abscess, drainage of the liver abscess, and placement of a cholecystostomy tube on Saturday. IMPRESSION: 1. Liver abscess. 2. Chronic cholecystitis. 3. Debility/gait imbalance/recurrent falls. 4. Moderate aortic stenosis. 5. 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 6. History of coronary artery disease (CAD) and coronary artery bypass grafting (CABG) x3 with moderate aortic stenosis. 7. Hypertension. 8. Anemia of chronic disease. 9. Dyslipidemia. 10. BPH. PLAN: The patient has been placed on broad-spectrum antibiotics since he had a fever of 101. Since the methicillin-resistant Staphylococcus aureus (MRSA) screen was negative, we can discontinue vancomycin for now. Continue with gram-negative anaerobic coverage with Zosyn. Interventional radiologist, Dr. Baeza has been consulted for liver abscess drainage. Radiology consulted for cholecystostomy tube. The patient will be kept n.p.o. after midnight and IV fluids in the morning while n.p.o. The patient's creatinine has improved. Most likely with a new baseline creatinine of 1.4 to 1.5. He is currently stage III renal failure. Monitor liver function tests for now. No signs of fluid overload yet, but will need to monitor. Holding parameters have been placed on the patient's isosorbide due to moderate aortic stenosis and need for preload and prevent hypotension and dehydration. Physical therapy (PT) and occupational therapy (OT) have been consulted. The patient's is unable to take care of him at home. She herself is 82 years old and with the recurrent falls and being blind, she is requesting help at home versus placement. PFS has been consulted.
[2021-09-03] MEDS: DOCUSATE SODIUM 100MG CAPSULE PO SCH ×2 (09:35→22:38)
[2021-09-03] MEDS: CALCIUM/VITAMIN D 500 MG TAB PO SCH ×2 (09:35→13:46)
[2021-09-03] MEDS: CETIRIZINE (ZyrTEC) 10 MG TAB PO SCH (09:36)
[2021-09-03] MEDS: MULTIVITAMINS/MINERALS THERAP 1 TAB PO SCH ×2 (09:36→22:38)
[2021-09-03] MEDS: FINASTERIDE 5 MG TAB PO SCH (09:36)
[2021-09-03] MEDS: COSOPT OCUMETER PLUS 10ML (DORZOLAMIDE/TIMOLOL) OU SCH ×2 (09:38→22:39)
[2021-09-03] MEDS: prednisoLONE ACET 1% OPHTH SUSP 5ML OU SCH ×2 (09:38→22:37)
[2021-09-03] MEDS: ISOSORBIDE MON. (IMDUR) 60 MG XR TAB PO SCH (09:38)
[2021-09-03] MEDS: SODIUM CHLORIDE 0.9% NASAL GEL 15GM (AYR) SCH ×4 (09:39→22:39)
[2021-09-03] MEDS: FLUTICASONE PROP 0.05% NASAL SPRAY 16 GM (FLONASE) NARES SCH (09:39)
[2021-09-03] MEDS: **NOTE PATIENT COMMENT** MISC XX SCH (09:40)
--- NOTE | 2021-09-03 12:12 | IPNPDOC ---
Text Note Date of Service The patient was seen on 09/03/21. NOTE Patient was eating breakfast when I entered the room. He seems to be tolerating oral diet. He denies any nausea, vomiting, any abdominal discomfort at all. Review of his vitals show an afebrile. Last febrile episode was on 09/01/2021 1:30 in the morning. Examination Patient is awake, alert and oriented He is blind Moderate systolic murmur. Is moderately round, nondistended. Very minimal tenderness only in the palpation of the right upper quadrant area. No rebound or guarding. Labs are noted. Leukocytosis is improving. Abdomen. CRP 17.1. Impression and plan Subacute versus chronic cholecystitis. Symptoms began 3 weeks ago. Liver abscess My initial plan is to have radiology drain both the abscess and place a cholecystostomy tube to deal with the liver abscess as well as the cholecystitis. I am thinking of having the liver abscess drained first and we can continue to monitor his progress. He has been able to tolerate diet. He does not seem to be very symptomatic from the cholecystitis at this point. He did not improve with just the drainage of the abscess, he probably will do better in terms of getting him back to the baseline. I will already spoken to him about needing an interval cholecystectomy. He is a bit apprehensive with that given his age. He certainly will need medical optimization prior to bringing him to the operating room especially so that the echocardiogram is showing moderate aortic stenosis. VS,Fishbone, I+O VS, Fishbone, I+O Laboratory Tests 09/03/21 05:41 Vital Signs Date Time Temp Pulse Resp B/P (MAP) Pulse Ox O2 Delivery O2 Flow Rate FiO2 09/03/21 09:38 142/75 09/03/21 06:00 98.1 74 17 98 Room Air I&O- Last 24 Hours up to 6 AM 09/03/21 06:00 Intake Total 2251 ml Output Total 2165 ml Balance 86 ml NABEEL GALLARDO MD Sep 03, 2021 12:12
[2021-09-03] MEDS: BENZONATATE 100MG CAPSULE PO PRN ×2 (13:46→22:39)
[2021-09-03 14:00] VITALS: BP 126/71
[2021-09-03 22:00] VITALS: BP 129/73
[2021-09-03] MEDS: ROSUVASTATIN 10 MG TAB (CRESTOR) PO SCH (22:38)
[2021-09-03] MEDS: TAMSULOSIN 0.4 MG CAP PO SCH (22:38)
[2021-09-03] MEDS: LIDOCAINE 5% (LIDODERM) PATCH TD SCH (22:39)
[2021-09-03] MEDS ORDERED: SENNA 8.6 MG TAB (SENOKOT) PO PRN (23:30)
[2021-09-04] MEDS: PIPERACILLIN/TAZOBACTAM SOD 2.25 GM in D5W MINI-BAG PLUS 50 ML IV SCH ×4 (04:04→23:46)
[2021-09-04 06:00] VITALS: BP 119/69
[2021-09-04 06:25] LABS: BASO % 0.1 % (0.0-1.0); EOS # 0.4 10^3/uL (0.0-0.5); EOS % 2.7 % (0.0-3.0); HEMATOCRIT 26.5 % (42.0-52.0); HEMOGLOBIN 9.3 g/dl (13.5-17.5); LYMPH # 1.3 10^3/uL (1.5-5.0); LYMPH % 9.6 % (24.0-44.0); MEAN CORPUSCULAR HGB CONC 35.1 g/dl (32.0-36.5); MONO # 1.9 10^3/uL (0.0-0.8); MONO % 13.3 % (2.0-8.0); NEUTROPHILS # 10.2 10^3/uL (1.5-8.5); NEUTROPHILS % 73.2 % (36.0-66.0); PLATELET COUNT, AUTOMATED 172 10^3/uL (150-450); RED BLOOD COUNT 2.82 10^6/uL (4.30-6.10)
[2021-09-04 06:53] LABS: ALBUMIN 1.6 GM/DL (3.2-5.2); BILIRUBIN,TOTAL 0.9 MG/DL (0.2-1.0); CALCIUM LEVEL 8.3 MG/DL (8.8-10.2); CREATININE FOR GFR 1.34 MG/DL (0.70-1.30); GLOMERULAR FILTRATION RATE 53.6 (>35); POTASSIUM SERUM 3.4 MEQ/L (3.5-5.1); TOTAL PROTEIN 5.6 GM/DL (6.4-8.2)
--- NOTE | 2021-09-04 07:12 | ECGEPIP ---
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
[2021-09-04] MEDS: **NOTE PATIENT COMMENT** MISC XX SCH (08:14)
[2021-09-04] MEDS: prednisoLONE ACET 1% OPHTH SUSP 5ML OU SCH ×2 (08:16→20:21)
[2021-09-04] MEDS: SODIUM CHLORIDE 0.9% NASAL GEL 15GM (AYR) SCH ×4 (08:16→20:21)
[2021-09-04] MEDS: COSOPT OCUMETER PLUS 10ML (DORZOLAMIDE/TIMOLOL) OU SCH ×2 (08:16→20:21)
[2021-09-04] MEDS: FLUTICASONE PROP 0.05% NASAL SPRAY 16 GM (FLONASE) NARES SCH (08:16)
[2021-09-04] MEDS: ISOSORBIDE MON. (IMDUR) 60 MG XR TAB PO SCH (09:00)
[2021-09-04] MEDS: DOCUSATE SODIUM 100MG CAPSULE PO SCH ×2 (09:00→20:20)
[2021-09-04] MEDS: CALCIUM/VITAMIN D 500 MG TAB PO SCH ×2 (09:00→14:43)
[2021-09-04] MEDS: MULTIVITAMINS/MINERALS THERAP 1 TAB PO SCH ×2 (09:00→20:23)
--- NOTE | 2021-09-04 09:13 | REP ---
INDICATION: liver abscess. . FINDINGS: Multiple ultrasonographic images of the liver show the hepatic parenchymal echo texture to appear unremarkable. There are no focal masses. There is no intrahepatic ductal dilatation. There are a few echogenic foci seen in the liver likely calcified granulomatous changes. The common bile duct measures between 4 and 5 mm in its greatest transverse dimension. Multiple ultrasonographic images of the gallbladder show multiple echogenic foci within the gallbladder lumen which casts acoustic shadows. The gallbladder wall is irregular and poorly defined. There is a mixed echo structure adjacent to the gallbladder wall the wall of which is thinner than the gallbladder wall itself. There is pericholecystic edema. Images of the pancreatic region show no gross abnormality. The imaged portion of the right kidney shows a 2 cm sized cyst IMPRESSION: 1. Gallbladder wall is abnormal in appearance. A pericholecystic abscess cannot be ruled out. Cholecystitis and a Phry[place] cap could also be responsible for causing the finding. Contrast-enhanced CT may be helpful. 2. Cholelithiasis Accredited by the [employer] in General Ultrasound. <Electronically signed by Luis Sy > 09/04/21 0901
--- NOTE | 2021-09-04 09:52 | IPNPDOC ---
Text Note Date of Service The patient was seen on 09/04/21. NOTE General surgery. Dr. Goel. The patient is a 86-year-old male admitted with cholecystitis and liver abscess. Patient is off the floor this morning for percutaneous drain of liver abscess. Afebrile. T-max 99.1. Heart rate 84, respiratory rate 16, blood pressure 118/69, 96% room air. WBC 14.0 compared with 14.7 yesterday. Hemoglobin 9.3 AST 158, ALT 181 and alkaline phosphatase 140. These are increased slightly compared with 09/01/2021. Assessment/plan Subacute versus chronic cholecystitis. Symptoms began 3 weeks ago Liver abscess The patient is reviewed by Dr. Goel this morning. The patient is currently off the floor for percutaneous drain of liver abscess. VS,Fishbone, I+O VS, Fishbone, I+O Laboratory Tests 09/04/21 06:06 Vital Signs Date Time Temp Pulse Resp B/P (MAP) Pulse Ox O2 Delivery O2 Flow Rate FiO2 09/04/21 06:00 98.6 84 16 119/69 (86) 96 Room Air I&O- Last 24 Hours up to 6 AM 09/04/21 06:00 Intake Total 1666 ml Output Total 1655 ml Balance 11 ml Emily Blevins Sep 04, 2021 09:52
[2021-09-04 10:12] LABS: INR 1.13
--- NOTE | 2021-09-04 10:57 | IPNPDOC ---
Date Seen The patient was seen on 09/04/21. Progress Note SUBJECTIVE: Afebrile overnight no nausea vomiting tolerating his diet but complains of right upper quadrant abdominal pain. No shortness of breath chest pain pressure tightness. OBJECTIVE: VITAL SIGNS:. See below GENERAL: The patient is blind. He is in no distress. Speaks in full sentences. NECK: No JVD or thyromegaly. LUNGS: Diminished. Clear to auscultation without wheezing or rales HEART: S1, S2. Sinus rhythm. Systolic ejection murmur at the apex radiating to the carotids. ABDOMEN: Soft, right upper quadrant tender, and nondistended with positive bowel sounds. No rebound or guarding EXTREMITIES: No cyanosis or clubbing. No edema LABORATORY DATA/IMAGING STUDIES/MICROBIOLOGY: Please see the chart. ASSESSMENT: This is an 86-year-old male who lives at home with his who is 84 years old. Presented to the emergency room on 08/31/2021, with complaints of bilateral lower extremity weakness, legs giving out on him, and recurrent falls seven times over the past two weeks and two times the day prior to admission. MRI of the brain and MRI of the lumbar spine were both negative. The patient had a fever of 101. CT chest, abdomen, and pelvis showed a possible liver abscess. The patient was started on intravenous antibiotics. He initially was dehydrated on admission with a creatinine of 2.08 with baseline of 1.2. The patient was given intravenous fluids with creatinine improving, but remains at 1.5 to 1.4. The patient's liver function tests were slightly elevated. Per surgical recommendation, interventional radiology (IR) consulted for liver abscess, drainage of the liver abscess, and placement of a cholecystostomy tube on Saturday. IMPRESSION: 1. Liver abscess. 2. Chronic cholecystitis. 3. Debility/gait imbalance/recurrent falls. 4. Moderate aortic stenosis. 5. 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 6. History of coronary artery disease (CAD) and coronary artery bypass grafting (CABG) x3 with moderate aortic stenosis. 7. Hypertension. 8. Anemia of chronic disease. 9. Dyslipidemia. 10. BPH. PLAN: We will continue on broad-spectrum antibiotics for now. Per interventional radiology, Small liver abscess, with recommendation to try aspiration of the liver abscess For Gram stain, culture and sensitivity, cytology, and pathology to rule out cholangiocarcinoma. CT-guided aspiration with biopsy of liver abscess ordered. Cholecystostomy tube recommended by general surgery due to persistent abdominal pain and tenderness in the right upper quadrant. PT OT. requesting services at home versus Rehab. PFS consulted VS, I&O, 24H, Kim Vital Signs/I&O Vital Signs Date Time Temp Pulse Resp B/P (MAP) Pulse Ox O2 Delivery O2 Flow Rate FiO2 09/04/21 06:00 98.6 84 16 119/69 (86) 96 Room Air I&O- Last 24 Hours up to 6 AM 09/04/21 06:00 Intake Total 1666 ml Output Total 1655 ml Balance 11 ml Laboratory Data 24H LABS Laboratory Tests 2 09/04/21 06:06: Immature Granulocyte % (Auto) 1.1, Neutrophils (%) (Auto) 73.2H, Lymphocytes (%) (Auto) 9.6L, Monocytes (%) (Auto) 13.3H, Eosinophils (%) (Auto) 2.7, Basophils (%) (Auto) 0.1, Neutrophils # (Auto) 10.2H, Lymphocytes # (Auto) 1.3L, Monocytes # (Auto) 1.9H, Eosinophils # (Auto) 0.4, Basophils # (Auto) 0.0, Nucleated Red Blood Cells % (auto) 0.0, Anion Gap 8, Glomerular Filtration Rate 53.6, Calcium Level 8.3L, Magnesium Level 2.2, Total Bilirubin 0.9, Aspartate Amino Transf (AST/SGOT) 158H, Alanine Aminotransferase (ALT/SGPT) 181H, Alkaline Phosphatase 140H, Total Protein 5.6L, Albumin 1.6L, Albumin/Globulin Ratio 0.4 09/04/21 09:38: Prothrombin Time 15.0H, Prothromb Time International Ratio 1.13, Activated Partial Thromboplast Time 31.0 CBC/BMP Laboratory Tests 09/04/21 06:06 Microbiology Microbiology 09/01/21 Stool Occult Blood (CAL) - Final, Complete 09/01/21 Urine Culture - Final, Complete Staphylococcus Epidermidis 08/31/21 Blood Culture - Preliminary, Resulted No Growth after 72 hours. All specime... 08/31/21 Blood Culture - Preliminary, Resulted No Growth after 72 hours. All specime... RACIEL BRAGA MD Sep 04, 2021 10:57
[2021-09-04] MEDS: FINASTERIDE 5 MG TAB PO SCH (13:02)
[2021-09-04] MEDS: CETIRIZINE (ZyrTEC) 10 MG TAB PO SCH (13:02)
[2021-09-04] MEDS ORDERED: LIDOCAINE 1% MDV 20ML VIAL As Ordered ONE (13:17)
[2021-09-04 14:00] VITALS: BP 165/80
[2021-09-04] MEDS: SENNA 8.6 MG TAB (SENOKOT) PO PRN (14:43)
--- NOTE | 2021-09-04 17:21 | REP ---
INDICATION: liver abscess? aspiration biopsy w pathology/c. COMPARISON: None. TECHNIQUE: The procedure was performed by KEYLA Miller, under the direct supervision of Dr. Schmitt. The risks and benefits of the procedure were explained to the patient and an informed consent was obtained both verbally and written. Directly prior to the start of the procedure a formal time-out was completed in the procedure room. The area of interest in the liver was localized using ultrasound guidance. The skin was prepped and draped in a sterile fashion. Ten mL of 1% lidocaine was used as a local anesthetic. Using ultrasound guidance a 19/20 gauge Temno biopsy device was inserted and advanced to the area of interest. 38 cc of purulent brown fluid was removed through the guide needle from this area. After the removal of the fluid 6 core biopsy specimens were obtained. These are sent to the lab for further evaluation. The patient tolerated the procedure well and there were no immediate complications. After the appropriate amount of monitored convalescence the patient was discharged from the department. FINDINGS: 38 mL of purulent brown fluid was removed. Six core biopsy specimens were obtained from the area of interest. These are sent to the lab for further evaluation. Results pending. IMPRESSION: Technically successful ultrasound-guided aspiration/biopsy of the liver abscess/possible mass. <Electronically signed by Shelley King > 09/04/21 [id number] <Electronically signed by Johnny Schmitt > 09/04/21 2522
[2021-09-04] MEDS: BENZONATATE 100MG CAPSULE PO PRN (20:19)
[2021-09-04] MEDS: TAMSULOSIN 0.4 MG CAP PO SCH (20:20)
[2021-09-04] MEDS: ROSUVASTATIN 10 MG TAB (CRESTOR) PO SCH (20:20)
[2021-09-04] MEDS: traMADol 50 MG TAB PO PRN (20:20)
[2021-09-04] MEDS: LIDOCAINE 5% (LIDODERM) PATCH TD SCH (20:23)
[2021-09-04 22:00] VITALS: BP 137/66
[2021-09-05] MEDS: PIPERACILLIN/TAZOBACTAM SOD 2.25 GM in D5W MINI-BAG PLUS 50 ML IV SCH ×4 (05:21→22:50)
[2021-09-05] MEDS: BENZONATATE 100MG CAPSULE PO PRN (05:25)
[2021-09-05 06:00] VITALS: BP 158/84
[2021-09-05] MEDS ORDERED: POTASSIUM CHLORIDE 10MEQ SR TABLET PO ONE (08:10)
--- NOTE | 2021-09-05 08:48 | IPNPDOC ---
Text Note Date of Service The patient was seen on 09/05/21. NOTE General surgery. Dr. Goel. The patient is a 86-year-old male admitted with cholecystitis and liver abscess. Status post liver biopsy 09/04/2021. Afebrile. Heart rate 75, respiratory rate 18, blood pressure 158/84, 97 % room air. Awake and alert resting in bed MMM Abdomen. Soft, nondistended, dressing right upper quadrant intact, mild tenderness in this area only. Labs pending this morning. Assessment/plan Subacute versus chronic cholecystitis. Symptoms began 3 weeks ago. The patient is reviewed and examined by Dr. Goel this morning. Status post liver biopsy yesterday, abscess cultures pending, pathology pending. Continue with IV Zosyn pending abscess culture results. Labs this morning are pending. Tentative plan for outpatient follow-up with general surgery, possibly consider elective cholecystectomy as outpatient. VS,Fishbone, I+O VS, Fishbone, I+O Vital Signs Date Time Temp Pulse Resp B/P (MAP) Pulse Ox O2 Delivery O2 Flow Rate FiO2 09/05/21 06:00 98.1 75 18 158/84 (108) 97 Room Air I&O- Last 24 Hours up to 6 AM 09/05/21 05:59 Intake Total 1777 ml Output Total 1725 ml Balance 52 ml Emily Blevins Sep 05, 2021 08:48
[2021-09-05] MEDS: prednisoLONE ACET 1% OPHTH SUSP 5ML OU SCH ×2 (09:00→20:53)
[2021-09-05] MEDS: SENNA 8.6 MG TAB (SENOKOT) PO PRN (09:07)
[2021-09-05] MEDS: FINASTERIDE 5 MG TAB PO SCH (09:07)
[2021-09-05] MEDS: CALCIUM/VITAMIN D 500 MG TAB PO SCH ×2 (09:08→14:08)
[2021-09-05] MEDS: MULTIVITAMINS/MINERALS THERAP 1 TAB PO SCH ×2 (09:08→20:58)
[2021-09-05] MEDS: CETIRIZINE (ZyrTEC) 10 MG TAB PO SCH (09:08)
[2021-09-05] MEDS: ISOSORBIDE MON. (IMDUR) 60 MG XR TAB PO SCH (09:08)
[2021-09-05] MEDS: DOCUSATE SODIUM 100MG CAPSULE PO SCH ×2 (09:08→20:58)
[2021-09-05] MEDS: **NOTE PATIENT COMMENT** MISC XX SCH (09:09)
[2021-09-05] MEDS: COSOPT OCUMETER PLUS 10ML (DORZOLAMIDE/TIMOLOL) OU SCH ×2 (09:09→21:00)
[2021-09-05] MEDS: FLUTICASONE PROP 0.05% NASAL SPRAY 16 GM (FLONASE) NARES SCH (09:09)
[2021-09-05] MEDS: SODIUM CHLORIDE 0.9% NASAL GEL 15GM (AYR) SCH ×4 (09:20→21:00)
[2021-09-05 10:24] LABS: HEMOGLOBIN 9.8 g/dl (13.5-17.5); MEAN CORPUSCULAR HEMOGLOBIN 32.5 pg (27.0-33.0); MEAN CORPUSCULAR HGB CONC 33.8 g/dl (32.0-36.5); PLATELET COUNT, AUTOMATED 216 10^3/uL (150-450); RED BLOOD COUNT 3.02 10^6/uL (4.30-6.10); WHITE BLOOD COUNT 10.9 10^3/uL (4.0-10.0)
[2021-09-05 11:12] LABS: EOSINOPHILS 7 % (0-3); LYMPHOCYTES 8 % (16-44); MONOCYTES 9 % (0-5); NEUTROPHILS 76 % (28-66); PLATELET ESTIMATE NORMAL (NORMAL)
[2021-09-05 11:33] LABS: CALCIUM LEVEL 8.3 MG/DL (8.8-10.2); CREATININE FOR GFR 1.26 MG/DL (0.70-1.30); GLOMERULAR FILTRATION RATE 57.5 (>35); POTASSIUM SERUM 3.8 MEQ/L (3.5-5.1)
--- NOTE | 2021-09-05 11:52 | IPN ---
PROGRESS NOTE DATE: 09/05/2021 SUBJECTIVE: Patient denies any nausea, vomiting. He is tolerating his liquid diet. He complains of slight pain, but tolerable. He is status post liver aspiration biopsy yesterday for culture, sensitivity and pathology, cytology. He has no new complaints this morning. OBJECTIVE: Vital signs: Temperature 98.1, pulse 75, respiratory rate 18, blood pressure 158/84, 97% on room air. General: Patient speaks in full sentences in no distress. HEENT: Patient is blind bilaterally. No cyanosis, icterus or jaundice. Neck: No JVD, thyromegaly. Lungs: Diminished, clear to auscultation without wheezes, rhonchi or rales. Heart: S1 and S2 sinus rhythm, systolic ejection murmur radiating to the carotids and the apical area. Abdomen: Soft, slightly tender right upper quadrant, a little bit more distended today and tympanitic. No guarding or rebound. Extremities: No cyanosis, clubbing or pitting edema. LABORATORY DATA/IMAGING STUDIES/MICROBIOLOGY: Please see the chart. ASSESSMENT: This is an 86-year-old male who lives with his who is 84 years old who is unable to care for him and provide 24/7 care admitted on 08/31/2021 with recurrent falls at home complaining that is legs were giving out on him. Patient had fallen 7 times over the past 2 weeks, 2 times a day prior to admission. Evaluation included MRI of the brain, MRI of the lumbar spine which were both negative for acute pathology. Patient had a fever of [address] chest, abdomen and pelvis which showed a liver abscess and chronic cholecystitis. Patient was started on intravenous antibiotics with Zosyn, general surgery was consulted with recommendations for liver abscess drainage. Reviewed by interventional radiology Dr. Baeza who recommended aspiration to rule out cholangiocarcinoma by radiology which was done by Dr. Schmitt. Patient is waiting for cholecystostomy tube placement today. On admission patient also had acute kidney injury with creatinine of 2.98 with baseline of 1.2, given I.V. fluids now with 1.4-1.5 creatinine. ACTIVE ISSUES: 1. Liver abscess. 2. Chronic cholecystitis. 3. Debility, gait imbalance, recurrent falls. Negative MRI of the brain and negative MRI of the lumbar spine. 4. Moderate aortic stenosis. 5. Glaucoma/blind in both eyes. 6. History of CAD, CABG with moderate aortic stenosis. 7. Hypertension. 8. Anemia of chronic disease. 9. Acute on chronic renal failure stage 3. 10. Dyslipidemia. 11. BPH. PLAN: Patient is on broad spectrum antibiotics for now. He has had no fever. White count is better. General surgery recommends cholecystomy tube placement. Awaiting cytology of the aspirate of the liver to rule out cholangiocarcinoma. Appreciate help with management by IR and radiology Dr. Schmitt. Patient's is requesting rehab services. Patient will be placed in an outpatient rehab facility due to significant debility and blindness. Hopefully discharge to rehab on . If patient is advanced on his diet and remains afebrile we can transition to oral antibiotics on discharge. ZOLTAN
[2021-09-05] MEDS ORDERED: PROMETHAZINE INJ 25 MG/ML VIAL (J2550) IV ONE (12:00)
[2021-09-05 14:00] VITALS: BP 127/77
[2021-09-05 20:00] VITALS: BP 114/59
[2021-09-05] MEDS: traMADol 50 MG TAB PO PRN (20:59)
[2021-09-05] MEDS: TAMSULOSIN 0.4 MG CAP PO SCH (20:59)
[2021-09-05] MEDS: ROSUVASTATIN 10 MG TAB (CRESTOR) PO SCH (20:59)
[2021-09-05] MEDS: LIDOCAINE 5% (LIDODERM) PATCH TD SCH (21:00)
[2021-09-06] MEDS: PIPERACILLIN/TAZOBACTAM SOD 2.25 GM in D5W MINI-BAG PLUS 50 ML IV SCH ×4 (04:37→23:53)
[2021-09-06 06:00] VITALS: BP 126/65
[2021-09-06 06:25] LABS: BASO % 0.2 % (0.0-1.0); EOS # 0.4 10^3/uL (0.0-0.5); EOS % 3.7 % (0.0-3.0); HEMATOCRIT 26.9 % (42.0-52.0); LYMPH # 1.7 10^3/uL (1.5-5.0); LYMPH % 16.4 % (24.0-44.0); MEAN CORPUSCULAR HEMOGLOBIN 32.3 pg (27.0-33.0); MEAN CORPUSCULAR HGB CONC 33.5 g/dl (32.0-36.5); MEAN CORPUSCULAR VOLUME 96.4 fl (80.0-96.0); MONO # 1.1 10^3/uL (0.0-0.8); MONO % 10.6 % (2.0-8.0); NEUTROPHILS # 7.2 10^3/uL (1.5-8.5); NEUTROPHILS % 68.3 % (36.0-66.0); PLATELET COUNT, AUTOMATED 223 10^3/uL (150-450); RED BLOOD COUNT 2.79 10^6/uL (4.30-6.10); WHITE BLOOD COUNT 10.6 10^3/uL (4.0-10.0)
[2021-09-06 06:30] LABS: BLOOD UREA NITROGEN 28 MG/DL (7-18); CARBON DIOXIDE LEVEL 24 MEQ/L (21-32); CHLORIDE LEVEL 113 MEQ/L (98-107); CREATININE FOR GFR 1.21 MG/DL (0.70-1.30); GLOMERULAR FILTRATION RATE > 60.0 (>35); GLUCOSE, FASTING 96 MG/DL (70-100); POTASSIUM SERUM 4.1 MEQ/L (3.5-5.1); SODIUM LEVEL 142 MEQ/L (136-145)
[2021-09-06] MEDS: SODIUM CHLORIDE 0.9% NASAL GEL 15GM (AYR) SCH ×4 (08:15→20:38)
[2021-09-06] MEDS: FLUTICASONE PROP 0.05% NASAL SPRAY 16 GM (FLONASE) NARES SCH (08:15)
[2021-09-06] MEDS: COSOPT OCUMETER PLUS 10ML (DORZOLAMIDE/TIMOLOL) OU SCH ×2 (08:15→20:37)
[2021-09-06] MEDS: prednisoLONE ACET 1% OPHTH SUSP 5ML OU SCH ×2 (08:16→20:36)
[2021-09-06] MEDS: **NOTE PATIENT COMMENT** MISC XX SCH (08:17)
[2021-09-06] MEDS: CALCIUM/VITAMIN D 500 MG TAB PO SCH ×2 (08:21→14:07)
[2021-09-06] MEDS: CETIRIZINE (ZyrTEC) 10 MG TAB PO SCH (08:21)
[2021-09-06] MEDS: DOCUSATE SODIUM 100MG CAPSULE PO SCH ×2 (08:21→20:38)
[2021-09-06] MEDS: MULTIVITAMINS/MINERALS THERAP 1 TAB PO SCH ×2 (08:21→20:37)
[2021-09-06] MEDS: FINASTERIDE 5 MG TAB PO SCH (08:21)
[2021-09-06] MEDS: ISOSORBIDE MON. (IMDUR) 60 MG XR TAB PO SCH (08:21)
--- NOTE | 2021-09-06 08:49 | IPNPDOC ---
Text Note Date of Service The patient was seen on 09/06/21. NOTE General surgery. Dr. Goel. The patient is a 86-year-old male admitted with cholecystitis and liver abscess. Status post liver biopsy 09/04/2021. Afebrile. VSS Awake and alert resting in bed MMM Abdomen. Soft, nondistended, NT. WBC 10.6, 10.9 yesterday. Assessment/plan Subacute versus chronic cholecystitis. Symptoms began 3 weeks ago. The patient is reviewed by Dr. Goel this morning. Status post liver biopsy , abscess cultures pending, pathology pending. Currently IV Zosyn. Tentative plan for outpatient follow-up with general surgery, possibly consider elective cholecystectomy as outpatient. The patient is okay for discharge from surgical standpoint when medically stable, would recommend to complete 21 days of antibiotics. VS,Fishbone, I+O VS, Fishbone, I+O Laboratory Tests 09/05/21 09:41 09/06/21 05:59 Vital Signs Date Time Temp Pulse Resp B/P (MAP) Pulse Ox O2 Delivery O2 Flow Rate FiO2 09/06/21 08:21 142/80 09/06/21 06:00 98.5 72 20 97 Room Air I&O- Last 24 Hours up to 6 AM 09/06/21 05:59 Intake Total 590 ml Output Total 1925 ml Balance -1335 ml Emily Blevins Sep 06, 2021 08:49
[2021-09-06] MEDS ORDERED: TRAM50TA2 PO (08:51)
[2021-09-06] MEDS ORDERED: BACITAB PO (08:52)
[2021-09-06] MEDS ORDERED: AUGM875T28 PO (08:53)
[2021-09-06] MEDS: SENNA 8.6 MG TAB (SENOKOT) PO PRN (10:10)
[2021-09-06] MEDS ORDERED: MOM 30ML SUSPENSION UDC PO ONE (11:45)
[2021-09-06] MEDS ORDERED: MOM 30ML SUSPENSION UDC PO PRN (11:45)
[2021-09-06 14:00] VITALS: BP 109/58
--- NOTE | 2021-09-06 15:36 | IPNPDOC ---
Date Seen The patient was seen on 09/06/21. Progress Note SUBJECTIVE: c/o discomfort 5/10 ruq but no n/v/f/c. tolerating his diet. OBJECTIVE: PE Vital signs: see below General: no distress. aaox3 blind HEENT: No cyanosis, icterus or jaundice. Neck: No JVD, thyromegaly. Lungs: clear to auscultation without wheezes, rhonchi or rales. Heart: S1 and S2 sinus rhythm, systolic ejection murmur radiating to the carotids and the apical area. Abdomen: Soft, slightly tender right upper quadrant, gauze over aspiration site clean w/o purulent drainage. tympanitic. No guarding or rebound. Extremities: No cyanosis, clubbing or pitting edema. LABORATORY DATA/IMAGING STUDIES/MICROBIOLOGY: Please see the chart. ASSESSMENT: This is an 86-year-old male who lives with his who is 84 years old who is unable to care for him and provide 24/7 care admitted on 08/31/2021 with recurrent falls at home complaining that is legs were giving out on him. Patient had fallen 7 times over the past 2 weeks, 2 times a day prior to admission. Evaluation included MRI of the brain, MRI of the lumbar spine which were both negative for acute pathology. Patient had a fever of [address] chest, abdomen and pelvis which showed a liver abscess and chronic cholecystitis. Patient was started on intravenous antibiotics with Zosyn, general surgery was consulted with recommendations for liver abscess drainage. Reviewed by interventional radiology Dr. Baeza who recommended aspiration to rule out cholangiocarcinoma by radiology which was done by Dr. Schmitt. Patient is waiting for cholecystostomy tube placement today. On admission patient also had acute kidney injury with creatinine of 2.98 with baseline of 1.2, given I.V. fluids now with 1.4-1.5 creatinine. ACTIVE ISSUES: 1. Liver abscess. 2. Chronic cholecystitis. 3. Debility, gait imbalance, recurrent falls. Negative MRI of the brain and negative MRI of the lumbar spine. 4. Moderate aortic stenosis. 5. Glaucoma/blind in both eyes. 6. History of CAD, CABG with moderate aortic stenosis. 7. Hypertension. 8. Anemia of chronic disease. 9. Acute on chronic renal failure stage 3. 10. Dyslipidemia. 11. BPH. PLAN: per surgery, no need for cholecystostomy tube since pt is stable, tolerating his diet. at discharge, may change to po abx x 21 days. oupt elective lap cristian . pt is blind and needs rehab. avoid dehydration or hypotension due to moderate aortic stenosis. holding parameters placed on isosorbide. medically stable for discharge anytime. if stable overnight, can change to alc status while waiting for rehab bed. VS, I&O, 24H, Fishbone Vital Signs/I&O Vital Signs Date Time Temp Pulse Resp B/P (MAP) Pulse Ox O2 Delivery O2 Flow Rate FiO2 09/06/21 14:00 98.7 77 18 109/58 (75) 96 Room Air I&O- Last 24 Hours up to 6 AM 09/06/21 06:00 Intake Total 590 ml Output Total 1925 ml Balance -1335 ml Laboratory Data 24H LABS Laboratory Tests 2 09/06/21 05:59: Immature Granulocyte % (Auto) 0.8, Neutrophils (%) (Auto) 68.3H, Lymphocytes (%) (Auto) 16.4L, Monocytes (%) (Auto) 10.6H, Eosinophils (%) (Auto) 3.7H, Basophils (%) (Auto) 0.2, Neutrophils # (Auto) 7.2, Lymphocytes # (Auto) 1.7, Monocytes # (Auto) 1.1H, Eosinophils # (Auto) 0.4, Basophils # (Auto) 0.0, Nucleated Red Blood Cells % (auto) 0.0, Anion Gap 5L, Glomerular Filtration Rate > 60.0, Calcium Level 8.0L CBC/BMP Laboratory Tests 09/06/21 05:59 Microbiology Microbiology 09/04/21 Gram Stain - Final, Resulted 09/04/21 Abscess Culture, Resulted Pending 09/01/21 Stool Occult Blood (CAL) - Final, Complete 09/01/21 Urine Culture - Final, Complete Staphylococcus Epidermidis 08/31/21 Blood Culture - Final, Complete NO GROWTH AFTER 5 DAYS 08/31/21 Blood Culture - Final, Complete NO GROWTH AFTER 5 DAYS RACIEL BRAGA MD Sep 06, 2021 15:36
[2021-09-06] MEDS: TAMSULOSIN 0.4 MG CAP PO SCH (20:37)
[2021-09-06] MEDS: LIDOCAINE 5% (LIDODERM) PATCH TD SCH (20:37)
[2021-09-06] MEDS: ROSUVASTATIN 10 MG TAB (CRESTOR) PO SCH (20:37)
[2021-09-06 22:00] VITALS: BP 139/69
[2021-09-07] MEDS: PIPERACILLIN/TAZOBACTAM SOD 2.25 GM in D5W MINI-BAG PLUS 50 ML IV SCH ×2 (04:35→11:15)
[2021-09-07 05:10] VITALS: BP 128/74
[2021-09-07 06:42] LABS: BASO % 0.2 % (0.0-1.0); EOS # 0.4 10^3/uL (0.0-0.5); EOS % 4.8 % (0.0-3.0); HEMATOCRIT 26.4 % (42.0-52.0); HEMOGLOBIN 8.9 g/dl (13.5-17.5); LYMPH # 1.7 10^3/uL (1.5-5.0); LYMPH % 20.3 % (24.0-44.0); MEAN CORPUSCULAR HEMOGLOBIN 33.1 pg (27.0-33.0); MEAN CORPUSCULAR HGB CONC 33.7 g/dl (32.0-36.5); MEAN CORPUSCULAR VOLUME 98.1 fl (80.0-96.0); MONO # 1.1 10^3/uL (0.0-0.8); MONO % 12.8 % (2.0-8.0); NEUTROPHILS % 60.8 % (36.0-66.0); PLATELET COUNT, AUTOMATED 253 10^3/uL (150-450); RED BLOOD COUNT 2.69 10^6/uL (4.30-6.10); WHITE BLOOD COUNT 8.2 10^3/uL (4.0-10.0)
[2021-09-07 07:05] LABS: CALCIUM LEVEL 7.7 MG/DL (8.8-10.2); CREATININE FOR GFR 1.41 MG/DL (0.70-1.30); GLOMERULAR FILTRATION RATE 50.5 (>35); POTASSIUM SERUM 4.1 MEQ/L (3.5-5.1)
[2021-09-07] MEDS: DOCUSATE SODIUM 100MG CAPSULE PO SCH ×2 (09:00→20:57)
[2021-09-07] MEDS: COSOPT OCUMETER PLUS 10ML (DORZOLAMIDE/TIMOLOL) OU SCH ×2 (09:41→20:57)
[2021-09-07] MEDS: prednisoLONE ACET 1% OPHTH SUSP 5ML OU SCH ×2 (09:41→20:56)
[2021-09-07] MEDS: FLUTICASONE PROP 0.05% NASAL SPRAY 16 GM (FLONASE) NARES SCH (09:41)
[2021-09-07] MEDS: CETIRIZINE (ZyrTEC) 10 MG TAB PO SCH (09:42)
[2021-09-07] MEDS: ISOSORBIDE MON. (IMDUR) 60 MG XR TAB PO SCH (09:42)
[2021-09-07] MEDS: CALCIUM/VITAMIN D 500 MG TAB PO SCH ×2 (09:42→14:12)
[2021-09-07] MEDS: SODIUM CHLORIDE 0.9% NASAL GEL 15GM (AYR) SCH ×4 (09:42→20:58)
[2021-09-07] MEDS: MULTIVITAMINS/MINERALS THERAP 1 TAB PO SCH ×2 (09:43→20:57)
[2021-09-07] MEDS: **NOTE PATIENT COMMENT** MISC XX SCH (09:43)
[2021-09-07] MEDS: FINASTERIDE 5 MG TAB PO SCH (09:43)
[2021-09-07] MEDS: guaiFENesin DM LIQ 10ML UD PO PRN (11:17)
[2021-09-07 14:00] VITALS: BP 142/73
[2021-09-07] MEDS: ROSUVASTATIN 10 MG TAB (CRESTOR) PO SCH (20:57)
[2021-09-07] MEDS: AUGMENTIN 875 MG TAB PO SCH (20:57)
[2021-09-07] MEDS: TAMSULOSIN 0.4 MG CAP PO SCH (20:57)
[2021-09-07] MEDS: LIDOCAINE 5% (LIDODERM) PATCH TD SCH (20:58)
[2021-09-07 22:00] VITALS: BP 136/73
[2021-09-08 06:00] VITALS: BP 152/83
[2021-09-08] MEDS: DOCUSATE SODIUM 100MG CAPSULE PO SCH (09:00)
[2021-09-08] MEDS: ISOSORBIDE MON. (IMDUR) 60 MG XR TAB PO SCH (09:00)
[2021-09-08] MEDS: SODIUM CHLORIDE 0.9% NASAL GEL 15GM (AYR) SCH ×4 (09:23→20:05)
[2021-09-08] MEDS: prednisoLONE ACET 1% OPHTH SUSP 5ML OU SCH ×2 (09:23→20:03)
[2021-09-08] MEDS: COSOPT OCUMETER PLUS 10ML (DORZOLAMIDE/TIMOLOL) OU SCH ×2 (09:23→20:03)
[2021-09-08] MEDS: FLUTICASONE PROP 0.05% NASAL SPRAY 16 GM (FLONASE) NARES SCH (09:23)
[2021-09-08] MEDS: **NOTE PATIENT COMMENT** MISC XX SCH (09:24)
[2021-09-08] MEDS: CALCIUM/VITAMIN D 500 MG TAB PO SCH ×2 (09:25→15:34)
[2021-09-08] MEDS: MULTIVITAMINS/MINERALS THERAP 1 TAB PO SCH ×2 (09:25→20:04)
[2021-09-08] MEDS: AUGMENTIN 875 MG TAB PO SCH ×2 (09:25→20:04)
[2021-09-08] MEDS: CETIRIZINE (ZyrTEC) 10 MG TAB PO SCH (09:25)
[2021-09-08] MEDS: FINASTERIDE 5 MG TAB PO SCH (09:25)
[2021-09-08 09:35] VITALS: BP 82/36
[2021-09-08 09:37] VITALS: BP 70/32
[2021-09-08 09:42] VITALS: BP 110/60
[2021-09-08 13:58] VITALS: BP 132/71
[2021-09-08] MEDS: LACTOBACILLUS ACIDOPHILUS CAP (BACID) PO SCH ×2 (15:34→20:04)
[2021-09-08] MEDS: ASPIRIN 81MG ENTERIC TABLET PO SCH (15:34)
[2021-09-08] MEDS: amLODIPine 5 MG TAB PO SCH (15:35)
[2021-09-08 16:45] LABS: BASO % 0.5 % (0.0-1.0); EOS # 0.4 10^3/uL (0.0-0.5); EOS % 4.9 % (0.0-3.0); HEMOGLOBIN 9.6 g/dl (13.5-17.5); LYMPH # 1.7 10^3/uL (1.5-5.0); LYMPH % 22.6 % (24.0-44.0); MEAN CORPUSCULAR HEMOGLOBIN 32.5 pg (27.0-33.0); MEAN CORPUSCULAR HGB CONC 33.1 g/dl (32.0-36.5); MEAN CORPUSCULAR VOLUME 98.3 fl (80.0-96.0); MONO % 13.9 % (2.0-8.0); NEUTROPHILS # 4.2 10^3/uL (1.5-8.5); NEUTROPHILS % 57.4 % (36.0-66.0); PLATELET COUNT, AUTOMATED 314 10^3/uL (150-450); RED BLOOD COUNT 2.95 10^6/uL (4.30-6.10); WHITE BLOOD COUNT 7.3 10^3/uL (4.0-10.0)
[2021-09-08 16:55] LABS: CALCIUM LEVEL 8.3 MG/DL (8.8-10.2); CREATININE FOR GFR 1.23 MG/DL (0.70-1.30); GLOMERULAR FILTRATION RATE 59.1 (>35); POTASSIUM SERUM 4.3 MEQ/L (3.5-5.1)
[2021-09-08] MEDS: TAMSULOSIN 0.4 MG CAP PO SCH (20:04)
[2021-09-08] MEDS: ROSUVASTATIN 10 MG TAB (CRESTOR) PO SCH (20:04)
[2021-09-08] MEDS: LIDOCAINE 5% (LIDODERM) PATCH TD SCH (20:04)
[2021-09-09 06:00] VITALS: BP 131/92
[2021-09-09] MEDS: amLODIPine 5 MG TAB PO SCH (09:00)
[2021-09-09] MEDS: LACTOBACILLUS ACIDOPHILUS CAP (BACID) PO SCH ×3 (09:33→20:18)
[2021-09-09] MEDS: FINASTERIDE 5 MG TAB PO SCH (09:33)
[2021-09-09] MEDS: MULTIVITAMINS/MINERALS THERAP 1 TAB PO SCH ×2 (09:33→20:18)
[2021-09-09] MEDS: **NOTE PATIENT COMMENT** MISC XX SCH (09:33)
[2021-09-09] MEDS: ASPIRIN 81MG ENTERIC TABLET PO SCH (09:33)
[2021-09-09] MEDS: prednisoLONE ACET 1% OPHTH SUSP 5ML OU SCH ×2 (09:33→19:16)
[2021-09-09] MEDS: CETIRIZINE (ZyrTEC) 10 MG TAB PO SCH (09:33)
[2021-09-09] MEDS: AUGMENTIN 875 MG TAB PO SCH ×2 (09:33→20:18)
[2021-09-09] MEDS: CALCIUM/VITAMIN D 500 MG TAB PO SCH ×2 (09:33→14:01)
[2021-09-09] MEDS: COSOPT OCUMETER PLUS 10ML (DORZOLAMIDE/TIMOLOL) OU SCH ×2 (09:34→20:18)
[2021-09-09] MEDS: SODIUM CHLORIDE 0.9% NASAL GEL 15GM (AYR) SCH ×4 (09:34→20:19)
[2021-09-09] MEDS: FLUTICASONE PROP 0.05% NASAL SPRAY 16 GM (FLONASE) NARES SCH (09:34)
[2021-09-09] MEDS: TAMSULOSIN 0.4 MG CAP PO SCH (20:18)
[2021-09-09] MEDS: ROSUVASTATIN 10 MG TAB (CRESTOR) PO SCH (20:18)
[2021-09-09] MEDS: LIDOCAINE 5% (LIDODERM) PATCH TD SCH (20:20)
[2021-09-10 06:00] VITALS: BP 155/80
[2021-09-10] MEDS: amLODIPine 5 MG TAB PO SCH (09:00)
[2021-09-10] MEDS: prednisoLONE ACET 1% OPHTH SUSP 5ML OU SCH ×2 (09:45→20:03)
[2021-09-10] MEDS: CETIRIZINE (ZyrTEC) 10 MG TAB PO SCH (09:46)
[2021-09-10] MEDS: FLUTICASONE PROP 0.05% NASAL SPRAY 16 GM (FLONASE) NARES SCH (09:46)
[2021-09-10] MEDS: FINASTERIDE 5 MG TAB PO SCH (09:46)
[2021-09-10] MEDS: CALCIUM/VITAMIN D 500 MG TAB PO SCH ×2 (09:46→14:01)
[2021-09-10] MEDS: AUGMENTIN 875 MG TAB PO SCH ×2 (09:46→20:31)
[2021-09-10] MEDS: LACTOBACILLUS ACIDOPHILUS CAP (BACID) PO SCH ×3 (09:46→20:31)
[2021-09-10] MEDS: ASPIRIN 81MG ENTERIC TABLET PO SCH (09:46)
[2021-09-10] MEDS: MULTIVITAMINS/MINERALS THERAP 1 TAB PO SCH ×2 (09:46→20:31)
[2021-09-10] MEDS: SODIUM CHLORIDE 0.9% NASAL GEL 15GM (AYR) SCH ×4 (09:47→20:03)
[2021-09-10] MEDS: **NOTE PATIENT COMMENT** MISC XX SCH (09:54)
[2021-09-10] MEDS: COSOPT OCUMETER PLUS 10ML (DORZOLAMIDE/TIMOLOL) OU SCH ×2 (10:04→20:31)
[2021-09-10 10:56] VITALS: BP 121/62
[2021-09-10 14:00] VITALS: BP 146/76
[2021-09-10] MEDS ORDERED: MOM 30ML SUSPENSION UDC PO PRN (15:15)
[2021-09-10] MEDS ORDERED: SENNA 8.6 MG TAB (SENOKOT) PO PRN (15:15)
[2021-09-10 16:44] VITALS: BP 140/74
[2021-09-10] MEDS ORDERED: ONDANSETRON 4 MG TAB PO PRN (17:00)
[2021-09-10] MEDS: DOCUSATE SODIUM 100MG CAPSULE PO PRN (18:59)
[2021-09-10] MEDS: TAMSULOSIN 0.4 MG CAP PO SCH (20:31)
[2021-09-10] MEDS: ROSUVASTATIN 10 MG TAB (CRESTOR) PO SCH (20:31)
[2021-09-10] MEDS: LIDOCAINE 5% (LIDODERM) PATCH TD SCH (20:31)
[2021-09-11 06:00] VITALS: BP 136/75
[2021-09-11] MEDS: amLODIPine 5 MG TAB PO SCH (09:00)
[2021-09-11] MEDS: LACTOBACILLUS ACIDOPHILUS CAP (BACID) PO SCH ×3 (09:13→20:12)
[2021-09-11] MEDS: AUGMENTIN 875 MG TAB PO SCH ×2 (09:13→20:11)
[2021-09-11] MEDS: CETIRIZINE (ZyrTEC) 10 MG TAB PO SCH (09:17)
[2021-09-11] MEDS: MULTIVITAMINS/MINERALS THERAP 1 TAB PO SCH ×2 (09:17→20:12)
[2021-09-11] MEDS: ASPIRIN 81MG ENTERIC TABLET PO SCH (09:17)
[2021-09-11] MEDS: CALCIUM/VITAMIN D 500 MG TAB PO SCH ×2 (09:17→17:08)
[2021-09-11] MEDS: FINASTERIDE 5 MG TAB PO SCH (09:18)
[2021-09-11] MEDS: FLUTICASONE PROP 0.05% NASAL SPRAY 16 GM (FLONASE) NARES SCH (09:19)
[2021-09-11] MEDS: **NOTE PATIENT COMMENT** MISC XX SCH (09:19)
[2021-09-11] MEDS: COSOPT OCUMETER PLUS 10ML (DORZOLAMIDE/TIMOLOL) OU SCH ×2 (09:19→20:11)
[2021-09-11] MEDS: prednisoLONE ACET 1% OPHTH SUSP 5ML OU SCH ×2 (09:19→20:11)
[2021-09-11] MEDS: SODIUM CHLORIDE 0.9% NASAL GEL 15GM (AYR) SCH ×4 (09:19→20:11)
[2021-09-11] MEDS: ACETAMINOPHEN TAB 650MG DOSE (2X325MG) PO PRN (12:23)
[2021-09-11] MEDS: ROSUVASTATIN 10 MG TAB (CRESTOR) PO SCH (20:11)
[2021-09-11] MEDS: TAMSULOSIN 0.4 MG CAP PO SCH (20:11)
[2021-09-11] MEDS: LIDOCAINE 5% (LIDODERM) PATCH TD SCH (20:12)
[2021-09-12] MEDS: ACETAMINOPHEN TAB 650MG DOSE (2X325MG) PO PRN ×2 (00:14→20:44)
[2021-09-12 06:10] VITALS: BP 135/67
[2021-09-12] MEDS: LACTOBACILLUS ACIDOPHILUS CAP (BACID) PO SCH ×3 (09:12→20:35)
[2021-09-12] MEDS: ASPIRIN 81MG ENTERIC TABLET PO SCH (09:12)
[2021-09-12] MEDS: FINASTERIDE 5 MG TAB PO SCH (09:12)
[2021-09-12] MEDS: amLODIPine 5 MG TAB PO SCH (09:12)
[2021-09-12] MEDS: CETIRIZINE (ZyrTEC) 10 MG TAB PO SCH (09:12)
[2021-09-12] MEDS: CALCIUM/VITAMIN D 500 MG TAB PO SCH ×2 (09:12→13:50)
[2021-09-12] MEDS: AUGMENTIN 875 MG TAB PO SCH ×2 (09:12→20:44)
[2021-09-12] MEDS: MULTIVITAMINS/MINERALS THERAP 1 TAB PO SCH ×2 (09:12→20:44)
[2021-09-12] MEDS: COSOPT OCUMETER PLUS 10ML (DORZOLAMIDE/TIMOLOL) OU SCH ×2 (09:13→20:35)
[2021-09-12] MEDS: FLUTICASONE PROP 0.05% NASAL SPRAY 16 GM (FLONASE) NARES SCH (09:13)
[2021-09-12] MEDS: **NOTE PATIENT COMMENT** MISC XX SCH (09:13)
[2021-09-12] MEDS: SODIUM CHLORIDE 0.9% NASAL GEL 15GM (AYR) SCH ×4 (09:13→20:34)
[2021-09-12] MEDS: prednisoLONE ACET 1% OPHTH SUSP 5ML OU SCH ×2 (09:13→20:35)
--- NOTE | 2021-09-12 20:23 | IPNPDOC ---
Date Seen The patient was seen on 09/12/21. Progress Note SUBJECTIVE: Patient still intermittently complains of discomfort in the right upper quadrant, 2/10 today. Blood pressures improved since modification of medications. Awaiting bed offer for rehabilitation. He denies nausea, vomiting, fevers, chills, shortness of breath, chest pain. OBJECTIVE: PHYSICAL EXAM: Vital signs: see below General: no distress. aaox3, legally blind HEENT: No cyanosis, icterus or jaundice. EOM intact, PERRLA Neck: No JVD, thyromegaly. Lungs: clear to auscultation without wheezes, rhonchi or rales. Heart: S1 and S2 sinus rhythm, systolic ejection murmur radiating to the carotids and the apical area. Abdomen: Soft, slightly tender right upper quadrant, No guarding or rebound. Extremities: No cyanosis, clubbing or pitting edema. Neuro: No focal deficits Psych: mood and affect appropriate LABORATORY DATA/IMAGING STUDIES/MICROBIOLOGY: Please see the chart. ASSESSMENT: This is an 86-year-old male who lives with his who is 84 years old who is unable to care for him and provide 24/7 care admitted on 08/31/2021 with recurrent falls at home complaining that is legs were giving out on him. Patient had fallen 7 times over the past 2 weeks, 2 times a day prior to admission. Evaluation included MRI of the brain, MRI of the lumbar spine which were both negative for acute pathology. Patient had a fever of [address] chest, abdomen and pelvis which showed a liver abscess and chronic cholecystitis. Patient was started on intravenous antibiotics with Zosyn, general surgery was consulted with recommendations for liver abscess drainage. Reviewed by interventional radiology Dr. Baeza who recommended aspiration to rule out cholangiocarcinoma by radiology which was done by Dr. Schmitt. Patient is waiting for cholecystostomy tube placement today. On admission patient also had acute kidney injury with creatinine of 2.98 with baseline of 1.2, given I.V. fluids now with 1.4-1.5 creatinine. ACTIVE ISSUES: 1. Liver abscess. 2. Chronic cholecystitis. 3. Debility, gait imbalance, recurrent falls. 4. Moderate aortic stenosis. 5. Glaucoma/blind in both eyes. 6. History of CAD, CABG with moderate aortic stenosis. 7. Hypertension. 8. Anemia of chronic disease. 9. Acute on chronic renal failure stage 3-RESOLVED 10. Dyslipidemia. 11. BPH. PLAN/DISPOSITION: No new complaints per patient. Per surgery, no need for cholecystostomy tube since pt is stable, tolerating his diet. At time of discharge, change to po abx x 21 days.Will need follow up for oupatient elective lap cristian . Pt needs continued rehab, [facility] is currently looking at his chart but nothing is solidified. BP has stabilized since placing holding parameters on meds. Medically stable for discharge and remains in ALC status. VS, I&O, 24H, Fishbone Vital Signs/I&O Vital Signs Date Time Temp Pulse Resp B/P (MAP) Pulse Ox O2 Delivery O2 Flow Rate FiO2 09/12/21 06:10 97.7 73 17 135/67 (89) 95 Room Air I&O- Last 24 Hours up to 6 AM 09/12/21 06:00 Intake Total 1360 ml Output Total 0 ml Balance 1360 ml Laboratory Data Microbiology Microbiology 09/04/21 Gram Stain - Final, Complete 09/04/21 Abscess Culture - Final, Complete Escherichia Coli Laine Min MD Sep 12, 2021 20:23
[2021-09-12] MEDS: ROSUVASTATIN 10 MG TAB (CRESTOR) PO SCH (20:35)
[2021-09-12] MEDS: LIDOCAINE 5% (LIDODERM) PATCH TD SCH (20:44)
[2021-09-12] MEDS: TAMSULOSIN 0.4 MG CAP PO SCH (20:44)
[2021-09-12] MEDS ORDERED: NITROGLYCERIN 0.4 MG SUBL TABLET SL PRN (20:55)
[2021-09-13 06:00] VITALS: BP 140/85
--- NOTE | 2021-09-13 08:01 | ECGEPIP ---
[facility] Test Date: 2021-09-12 Pat Name: NEIL NOVAK Department: Room: [place] [address] Gender: Male Breast Worker: RESP : 1935 Requested By: MIGEL Sellers Order Number: [id number] Reading MD: Miguel White Measurements Intervals [place] Rate: 75 P: 115 OK: 216 QRS: 225 QRSD: 118 T: 99 QT: 400 QTc: 446 Interpretive Statements limb lead reversal Different precordial lead placement as well this study needs to be repeated Electronically Signed on 09-13-2021 8:00:47 EST by Miguel White
[2021-09-13] MEDS: amLODIPine 5 MG TAB PO SCH (09:00)
[2021-09-13] MEDS: **NOTE PATIENT COMMENT** MISC XX SCH (09:00)
[2021-09-13 09:12] LABS: HEMATOCRIT 33.1 % (42.0-52.0); HEMOGLOBIN 10.4 g/dl (13.5-17.5); MEAN CORPUSCULAR HEMOGLOBIN 32.1 pg (27.0-33.0); MEAN CORPUSCULAR HGB CONC 31.4 g/dl (32.0-36.5); MEAN CORPUSCULAR VOLUME 102.2 fl (80.0-96.0); PLATELET COUNT, AUTOMATED 333 10^3/uL (150-450); RED BLOOD COUNT 3.24 10^6/uL (4.30-6.10)
[2021-09-13 09:40] LABS: ALBUMIN 2.4 GM/DL (3.2-5.2); BILIRUBIN,TOTAL 0.3 MG/DL (0.2-1.0); CALCIUM LEVEL 8.6 MG/DL (8.8-10.2); CREATININE FOR GFR 1.22 MG/DL (0.70-1.30); GLOMERULAR FILTRATION RATE 59.7 (>35); POTASSIUM SERUM 3.9 MEQ/L (3.5-5.1); TOTAL PROTEIN 6.6 GM/DL (6.4-8.2)
[2021-09-13] MEDS: prednisoLONE ACET 1% OPHTH SUSP 5ML OU SCH ×2 (09:51→21:43)
[2021-09-13] MEDS: FLUTICASONE PROP 0.05% NASAL SPRAY 16 GM (FLONASE) NARES SCH ×2 (10:06→21:42)
[2021-09-13] MEDS: LACTOBACILLUS ACIDOPHILUS CAP (BACID) PO SCH ×3 (10:06→21:41)
[2021-09-13] MEDS: COSOPT OCUMETER PLUS 10ML (DORZOLAMIDE/TIMOLOL) OU SCH ×2 (10:06→21:44)
[2021-09-13] MEDS: FINASTERIDE 5 MG TAB PO SCH (10:08)
[2021-09-13] MEDS: CETIRIZINE (ZyrTEC) 10 MG TAB PO SCH (10:08)
[2021-09-13] MEDS: AUGMENTIN 875 MG TAB PO SCH ×2 (10:08→21:41)
[2021-09-13] MEDS: ASPIRIN 81MG ENTERIC TABLET PO SCH (10:08)
[2021-09-13] MEDS: SODIUM CHLORIDE 0.9% NASAL GEL 15GM (AYR) SCH ×4 (10:09→21:43)
[2021-09-13] MEDS: MULTIVITAMINS/MINERALS THERAP 1 TAB PO SCH ×2 (10:09→21:41)
[2021-09-13] MEDS: CALCIUM/VITAMIN D 500 MG TAB PO SCH ×2 (10:09→15:45)
[2021-09-13] MEDS: ROSUVASTATIN 10 MG TAB (CRESTOR) PO SCH (21:41)
[2021-09-13] MEDS: TAMSULOSIN 0.4 MG CAP PO SCH (21:41)
[2021-09-13] MEDS: LIDOCAINE 5% (LIDODERM) PATCH TD SCH (21:44)
[2021-09-14] MEDS: **NOTE PATIENT COMMENT** MISC XX SCH (09:00)
[2021-09-14] MEDS: prednisoLONE ACET 1% OPHTH SUSP 5ML OU SCH ×2 (09:21→20:08)
[2021-09-14] MEDS: SODIUM CHLORIDE 0.9% NASAL GEL 15GM (AYR) SCH ×4 (09:21→20:07)
[2021-09-14] MEDS: MULTIVITAMINS/MINERALS THERAP 1 TAB PO SCH ×2 (10:35→20:10)
[2021-09-14] MEDS: CETIRIZINE (ZyrTEC) 10 MG TAB PO SCH (10:36)
[2021-09-14] MEDS: amLODIPine 5 MG TAB PO SCH (10:36)
[2021-09-14] MEDS: AUGMENTIN 875 MG TAB PO SCH ×2 (10:36→20:07)
[2021-09-14] MEDS: FINASTERIDE 5 MG TAB PO SCH (10:36)
[2021-09-14] MEDS: ASPIRIN 81MG ENTERIC TABLET PO SCH (10:36)
[2021-09-14] MEDS: LACTOBACILLUS ACIDOPHILUS CAP (BACID) PO SCH ×3 (10:36→20:07)
[2021-09-14] MEDS: COSOPT OCUMETER PLUS 10ML (DORZOLAMIDE/TIMOLOL) OU SCH ×2 (10:37→20:07)
[2021-09-14] MEDS: CALCIUM/VITAMIN D 500 MG TAB PO SCH ×2 (10:37→13:30)
[2021-09-14] MEDS: ROSUVASTATIN 10 MG TAB (CRESTOR) PO SCH (20:08)
[2021-09-14] MEDS: TAMSULOSIN 0.4 MG CAP PO SCH (20:08)
[2021-09-14] MEDS: LIDOCAINE 5% (LIDODERM) PATCH TD SCH (20:10)
[2021-09-15 05:38] VITALS: BP 129/68
[2021-09-15] MEDS: COSOPT OCUMETER PLUS 10ML (DORZOLAMIDE/TIMOLOL) OU SCH ×2 (09:30→20:38)
[2021-09-15] MEDS: LACTOBACILLUS ACIDOPHILUS CAP (BACID) PO SCH ×3 (09:31→20:38)
[2021-09-15] MEDS: CETIRIZINE (ZyrTEC) 10 MG TAB PO SCH (09:31)
[2021-09-15] MEDS: ASPIRIN 81MG ENTERIC TABLET PO SCH (09:31)
[2021-09-15] MEDS: FINASTERIDE 5 MG TAB PO SCH (09:31)
[2021-09-15] MEDS: CALCIUM/VITAMIN D 500 MG TAB PO SCH ×2 (09:31→13:22)
[2021-09-15] MEDS: prednisoLONE ACET 1% OPHTH SUSP 5ML OU SCH ×2 (09:31→20:39)
[2021-09-15] MEDS: amLODIPine 5 MG TAB PO SCH (09:33)
[2021-09-15] MEDS: MULTIVITAMINS/MINERALS THERAP 1 TAB PO SCH ×2 (09:34→20:38)
[2021-09-15] MEDS: FLUTICASONE PROP 0.05% NASAL SPRAY 16 GM (FLONASE) NARES SCH (09:34)
[2021-09-15] MEDS: AUGMENTIN 875 MG TAB PO SCH ×2 (09:34→20:38)
[2021-09-15] MEDS: **NOTE PATIENT COMMENT** MISC XX SCH (09:46)
[2021-09-15] MEDS: SODIUM CHLORIDE 0.9% NASAL GEL 15GM (AYR) SCH ×4 (10:41→20:39)
[2021-09-15 14:00] VITALS: BP 98/56
[2021-09-15] MEDS: TAMSULOSIN 0.4 MG CAP PO SCH (20:38)
[2021-09-15] MEDS: ROSUVASTATIN 10 MG TAB (CRESTOR) PO SCH (20:38)
[2021-09-15] MEDS: LIDOCAINE 5% (LIDODERM) PATCH TD SCH (20:40)
[2021-09-16 06:00] VITALS: BP 150/81
[2021-09-16] MEDS: **NOTE PATIENT COMMENT** MISC XX SCH (09:00)
[2021-09-16] MEDS: amLODIPine 5 MG TAB PO SCH (09:00)
[2021-09-16] MEDS: LACTOBACILLUS ACIDOPHILUS CAP (BACID) PO SCH ×3 (09:02→21:12)
[2021-09-16] MEDS: FINASTERIDE 5 MG TAB PO SCH (09:04)
[2021-09-16] MEDS: COSOPT OCUMETER PLUS 10ML (DORZOLAMIDE/TIMOLOL) OU SCH ×2 (09:05→21:12)
[2021-09-16] MEDS: CALCIUM/VITAMIN D 500 MG TAB PO SCH ×2 (09:05→14:30)
[2021-09-16] MEDS: prednisoLONE ACET 1% OPHTH SUSP 5ML OU SCH ×2 (09:05→21:12)
[2021-09-16] MEDS: CETIRIZINE (ZyrTEC) 10 MG TAB PO SCH (09:05)
[2021-09-16] MEDS: AUGMENTIN 875 MG TAB PO SCH ×2 (09:05→21:12)
[2021-09-16] MEDS: ASPIRIN 81MG ENTERIC TABLET PO SCH (09:05)
[2021-09-16] MEDS: MULTIVITAMINS/MINERALS THERAP 1 TAB PO SCH ×2 (09:05→21:12)
[2021-09-16] MEDS: FLUTICASONE PROP 0.05% NASAL SPRAY 16 GM (FLONASE) NARES SCH (09:05)
[2021-09-16] MEDS: SODIUM CHLORIDE 0.9% NASAL GEL 15GM (AYR) SCH ×4 (09:06→21:12)
[2021-09-16 14:00] VITALS: BP 122/62
[2021-09-16] MEDS: TAMSULOSIN 0.4 MG CAP PO SCH (21:12)
[2021-09-16] MEDS: ROSUVASTATIN 10 MG TAB (CRESTOR) PO SCH (21:12)
[2021-09-16] MEDS: LIDOCAINE 5% (LIDODERM) PATCH TD SCH (21:13)
[2021-09-17 06:00] VITALS: BP 125/68
[2021-09-17] MEDS: FLUTICASONE PROP 0.05% NASAL SPRAY 16 GM (FLONASE) NARES SCH (08:57)
[2021-09-17] MEDS: LACTOBACILLUS ACIDOPHILUS CAP (BACID) PO SCH ×3 (08:57→20:48)
[2021-09-17] MEDS: AUGMENTIN 875 MG TAB PO SCH ×2 (08:57→20:48)
[2021-09-17] MEDS: COSOPT OCUMETER PLUS 10ML (DORZOLAMIDE/TIMOLOL) OU SCH ×2 (08:57→20:49)
[2021-09-17] MEDS: prednisoLONE ACET 1% OPHTH SUSP 5ML OU SCH ×2 (08:57→20:49)
[2021-09-17] MEDS: SODIUM CHLORIDE 0.9% NASAL GEL 15GM (AYR) SCH ×4 (08:57→20:49)
[2021-09-17] MEDS: **NOTE PATIENT COMMENT** MISC XX SCH (08:58)
[2021-09-17] MEDS: amLODIPine 5 MG TAB PO SCH (08:58)
[2021-09-17] MEDS: ASPIRIN 81MG ENTERIC TABLET PO SCH (08:58)
[2021-09-17] MEDS: CETIRIZINE (ZyrTEC) 10 MG TAB PO SCH (08:58)
[2021-09-17] MEDS: CALCIUM/VITAMIN D 500 MG TAB PO SCH ×2 (08:58→15:47)
[2021-09-17] MEDS: FINASTERIDE 5 MG TAB PO SCH (08:58)
[2021-09-17] MEDS: MULTIVITAMINS/MINERALS THERAP 1 TAB PO SCH ×2 (08:58→20:48)
[2021-09-17] MEDS: ACETAMINOPHEN TAB 650MG DOSE (2X325MG) PO PRN (15:47)
[2021-09-17] MEDS: ROSUVASTATIN 10 MG TAB (CRESTOR) PO SCH (20:48)
[2021-09-17] MEDS: TAMSULOSIN 0.4 MG CAP PO SCH (20:48)
[2021-09-17] MEDS: LIDOCAINE 5% (LIDODERM) PATCH TD SCH (20:50)
[2021-09-18 06:00] VITALS: BP 129/69
[2021-09-18 06:53] LABS: HEMATOCRIT 30.4 % (42.0-52.0); HEMOGLOBIN 9.7 g/dl (13.5-17.5); MEAN CORPUSCULAR HEMOGLOBIN 32.6 pg (27.0-33.0); MEAN CORPUSCULAR HGB CONC 31.9 g/dl (32.0-36.5); PLATELET COUNT, AUTOMATED 254 10^3/uL (150-450); RED BLOOD COUNT 2.98 10^6/uL (4.30-6.10); WHITE BLOOD COUNT 6.6 10^3/uL (4.0-10.0)
[2021-09-18 07:16] LABS: ALBUMIN 2.6 GM/DL (3.2-5.2); BILIRUBIN,TOTAL 0.4 MG/DL (0.2-1.0); CALCIUM LEVEL 8.6 MG/DL (8.8-10.2); CREATININE FOR GFR 1.25 MG/DL (0.70-1.30); POTASSIUM SERUM 4.2 MEQ/L (3.5-5.1)
[2021-09-18] MEDS: amLODIPine 5 MG TAB PO SCH (09:00)
[2021-09-18] MEDS: MULTIVITAMINS/MINERALS THERAP 1 TAB PO SCH ×2 (09:44→20:59)
[2021-09-18] MEDS: FINASTERIDE 5 MG TAB PO SCH (09:44)
[2021-09-18] MEDS: ASPIRIN 81MG ENTERIC TABLET PO SCH (09:44)
[2021-09-18] MEDS: LACTOBACILLUS ACIDOPHILUS CAP (BACID) PO SCH ×3 (09:44→20:59)
[2021-09-18] MEDS: AUGMENTIN 875 MG TAB PO SCH ×2 (09:44→20:59)
[2021-09-18] MEDS: CALCIUM/VITAMIN D 500 MG TAB PO SCH ×2 (09:45→14:50)
[2021-09-18] MEDS: CETIRIZINE (ZyrTEC) 10 MG TAB PO SCH (09:45)
[2021-09-18] MEDS: SODIUM CHLORIDE 0.9% NASAL GEL 15GM (AYR) SCH ×4 (09:45→20:59)
[2021-09-18] MEDS: prednisoLONE ACET 1% OPHTH SUSP 5ML OU SCH ×2 (09:47→20:58)
[2021-09-18] MEDS: COSOPT OCUMETER PLUS 10ML (DORZOLAMIDE/TIMOLOL) OU SCH ×2 (09:47→20:58)
[2021-09-18] MEDS: **NOTE PATIENT COMMENT** MISC XX SCH (09:48)
[2021-09-18] MEDS: FLUTICASONE PROP 0.05% NASAL SPRAY 16 GM (FLONASE) NARES SCH (09:49)
[2021-09-18] MEDS: DOCUSATE SODIUM 100MG CAPSULE PO PRN (17:19)
[2021-09-18] MEDS: TAMSULOSIN 0.4 MG CAP PO SCH (20:59)
[2021-09-18] MEDS: LIDOCAINE 5% (LIDODERM) PATCH TD SCH (20:59)
[2021-09-18] MEDS: ROSUVASTATIN 10 MG TAB (CRESTOR) PO SCH (20:59)
[2021-09-19 06:00] VITALS: BP 116/61
[2021-09-19] MEDS: DOCUSATE SODIUM 100MG CAPSULE PO PRN (09:44)
[2021-09-19] MEDS: CETIRIZINE (ZyrTEC) 10 MG TAB PO SCH (09:44)
[2021-09-19] MEDS: ASPIRIN 81MG ENTERIC TABLET PO SCH (09:44)
[2021-09-19] MEDS: LACTOBACILLUS ACIDOPHILUS CAP (BACID) PO SCH (09:44)
[2021-09-19] MEDS: FINASTERIDE 5 MG TAB PO SCH (09:44)
[2021-09-19] MEDS: MULTIVITAMINS/MINERALS THERAP 1 TAB PO SCH (09:44)
[2021-09-19] MEDS: AUGMENTIN 875 MG TAB PO SCH (09:44)
[2021-09-19 09:45] VITALS: BP 113/57
[2021-09-19] MEDS: amLODIPine 5 MG TAB PO SCH (09:45)
[2021-09-19] MEDS: CALCIUM/VITAMIN D 500 MG TAB PO SCH ×2 (09:45→14:43)
[2021-09-19] MEDS: SODIUM CHLORIDE 0.9% NASAL GEL 15GM (AYR) SCH ×2 (09:46→13:00)
[2021-09-19] MEDS: prednisoLONE ACET 1% OPHTH SUSP 5ML OU SCH (09:46)
[2021-09-19] MEDS: COSOPT OCUMETER PLUS 10ML (DORZOLAMIDE/TIMOLOL) OU SCH (09:46)
[2021-09-19] MEDS: FLUTICASONE PROP 0.05% NASAL SPRAY 16 GM (FLONASE) NARES SCH (09:47)
[2021-09-19] MEDS: **NOTE PATIENT COMMENT** MISC XX SCH (09:47)
[2021-09-19] MEDS ORDERED: MOM 30ML SUSPENSION UDC PO ONE (13:40)
--- NOTE | 2021-09-19 13:40 | DS.PDOC ---
Discharge Summary General Date of Admission Aug 31, 2021 at 14:37 Date of Discharge 09/19/21 Discharge Summary PROCEDURES PERFORMED DURING STAY: US guided liver abscess biopsy (09/04/21): TECHNIQUE: The procedure was performed by KEYLA Miller, under the direct supervision of Dr. Schmitt. The risks and benefits of the procedure were explained to the patient and an informed consent was obtained both verbally and written. Directly prior to the start of the procedure a formal time-out was completed in the procedure room. The area of interest in the liver was localized using ultrasound guidance. The skin was prepped and draped in a sterile fashion. Ten mL of 1% lidocaine was used as a local anesthetic. Using ultrasound guidance a 19/20 gauge Temno biopsy device was inserted and advanced to the area of interest. 38 cc of purulent brown fluid was removed through the guide needle from this area. After the removal of the fluid 6 core biopsy specimens were obtained. These are sent to the lab for further evaluation. The patient tolerated the procedure well and there were no immediate complications. After the appropriate amount of monitored convalescence the patient was discharged from the department. FINDINGS: 38 mL of purulent brown fluid was removed. Six core biopsy specimens were obta ined from the area of interest. These are sent to the lab for further evaluation. Results pending. IMPRESSION: Technically successful ultrasound-guided aspiration/biopsy of the liver abscess/possible mass. ADMITTING DIAGNOSES: Recurrent falls SHAY Metabolic acidosis AOCD Hx CAD, CABG, MA Bilateral eye blindness Dyslipidemia Hx HTN Hemorrhoids Hx skin cancer Hx tendinitis Seasonal allergies DISCHARGE DIAGNOSES: Liver abscesss Chronic cholecystitis Moderate aortic stenosis Recurrent falls SHAY Metabolic acidosis AOCD Hx CAD, CABG, MA Bilateral eye blindness Dyslipidemia Hx HTN Hemorrhoids Hx skin cancer Hx tendinitis Seasonal allergies COMPLICATIONS/CHIEF COMPLAINT: Recurrent Falls While Walking. HISTORY OF PRESENT ILLNESS: obtained from HPI "86-year-old male with history of CAD CABG x3 vessels recent right eye drain for glaucoma bilateral blindness right legally blind left totally blind CAD MA hypercholesterolemia hypertension urinary tract infection benign prostatic hypertrophy presents emergency room with 2-week history of recurrent falls 7 times in the past 2 weeks and twice yesterday, feeling like his legs are giving out. Patient has been using the furniture in his bedroom to get around and despite using his walker had fallen 7 times without any head trauma or loss of consciousness. Patient denies any chest pain pressure tightness palpitations but he did notice some dizziness prior to the fall he has had increasing confusion feeling like "things are not where they usually are." He has had poor coordination for the past 2 weeks he denied any nausea vomiting diarrhea abdominal pain bright red blood per rectum melena black tarry stools dysuria urgency frequency. In the emergency room he was found to have a creatinine of 2, afebrile, ekg sinus, chest x-ray no acute disease CT of the head negative. Hospitalist was asked to admit the patient for recurrent falls." HOSPITAL COURSE: . DISCHARGE MEDICATIONS: Please see below. ALLERGIES: Please see below. PHYSICAL EXAMINATION ON DISCHARGE: VITAL SIGNS: please see below General: NAD, comfortable HEENT: PERRLA, EOMI, sclerae clear Neck: supple, normal ROM, no JVD Respiratory: lungs CTAB, no wheeze, no rales, no crackles CVS: RRR, normal S1, S2, no murmurs Abdo: soft, no masses, no hepatosplenomegaly, BS+, no rebound tenderness Extremities: no edema, pulses 2+ MSK: no joint deformities, normal ROM Neuro: no focal neuro deficits, moving all 4 extremities, CN2-12 intact. Strength 5/5 in all 4 extremities. No nystagmus. Psych: calm, cooperative, AAO x 3 LABORATORY DATA: Please see below. IMAGING: Liver US (09/04/21): 1. Gallbladder wall is abnormal in appearance. A pericholecystic abscess cannot be ruled out. Cholecystitis and a Phrygian cap could also be responsible for causing the finding. Contrast-enhanced CT may be helpful. 2. Cholelithiasis CT chest wo contrast (09/01/21): 1. Lung stratton without any acute finding. Some old granulomatous disease in right hilar nodes as well as a calcified granuloma in the right upper lobe. 2. Prior sternotomy with mediastinal clips, some coronary calcifications and no aortic aneurysm. 3. Some degenerative changes in the spine. No acute bony finding. No significant abnormality. CT abdo pelvis w PO contrast (09/01/21): 1. Gallbladder distended with hyperdense bile and pericholecystic edema in the fat surrounding and also a 4.2 x 3.6 x 2.2 cm subcapsular low-density focus in the liver that is suspicious for liver abscess in this patient with fever. No biliary dilatation or adjacent ascites. I see no calcified gallstones. Pancreas, adrenal glands, kidneys and spleen grossly intact. No colitis, diverticulitis stricture or mass. 2. No adenopathy. Bladder without abnormality except for enlargement of the prostate elevating it is base. No stone or dilated ureter. Renal US (08/31/21): Echogenic kidneys suggests medical renal disease. No hydronephrosis. MRI Lumbar Spine (08/31/21): FINDINGS: Limitations: Examination is limited by motion artifact. Vertebral body heights are maintained. No abnormal marrow signal. No cord compression. No abnormal cord signal. Conus medullaris terminates at the L1 level. Paravertebral soft tissues are unremarkable. L1-L2: No significant canal or foraminal narrowing. L2-L3: Broad-based disc bulge and facet hypertrophy cause mild canal narrowing and mild bilateral foraminal narrowing. L3-L4: Broad-based disc bulge and facet hypertrophy cause mild canal narrowing and mild bilateral foraminal narrowing. L4-L5: Broad-based disc bulge and facet hypertrophy cause mild canal narrowing and [id number] bilateral foraminal narrowing. L5-S1: Broad-based disc bulge and facet hypertrophy cause mild canal narrowing and [id number] bilateral foraminal narrowing. IMPRESSION: 1. No acute findings in the lumbar spine. 2. [id number]-nagompzr spondylotic changes of the lumbar spine, as detailed above MRI brain wo contrast (08/31/21) FINDINGS: Brain: Nonspecific T2/FLAIR hyperintensities of the periventricular and deep subcortical white matter, most likely secondary to chronic small vessel ischemic change. No intracranial hemorrhage or extra-axial fluid collection. No evidence of mass effect or midline shift. No restricted diffusion to suggest acute infarct. Cerebral ventricles: Prominence of the ventricles and sulci, likely attributed to parenchymal volume loss. Bones/joints: Unremarkable. Paranasal sinuses: Left maxillary sinus retention cyst. Mastoid air cells: No mastoid effusion. Orbital cavity: Unremarkable. Soft tissues: Unremarkable. IMPRESSION: 1. No acute intracranial pathology. 2. Chronic findings, as above. CT head wo contrast (08/31/21): 1. Moderately severe cortical atrophy and ventriculomegaly in proportion, age-appropriate. 2. No acute infarct, intracranial hemorrhage, mass, mass effect or edema. 3. Chronic small vessel white matter ischemic changes. 4. Skull base with mastoid and visualized sinuses unremarkable. Calvarium intact. Some atherosclerotic calcifications of the carotid siphon. Otherwise negative. PROGNOSIS: fair ACTIVITY: walk with walker DIET: as tolerated DISCHARGE PLAN: DC home with home health services. F/u PCP 3-5 days. Complete 21 days of augmentin 875 mg BID PO. F/u Dr. Goel on 10/05/21. DISPOSITION: DC home with home health services. DISCHARGE INSTRUCTIONS: F/u PCP - 3/5 days. [facility] need to [facility] to [facility]. F/u Dr. Goel 10/05/21 at 0845 am. Complete 21 days of Augmentin 875 mg BID ITEMS TO FOLLOWUP ON ON OUTPATIENT: - repeat bx of liver abscess may be needed per pathology report if clinically suspicious. To f/u with general surgery to make determination. DISCHARGE CONDITION: [Stable]. TIME SPENT ON DISCHARGE: 35 minutes Vital Signs/I&Os Vital Signs Date Time Temp Pulse Resp B/P (MAP) Pulse Ox O2 Delivery O2 Flow Rate FiO2 09/19/21 09:45 78 113/57 09/19/21 06:00 98.5 17 96 Room Air I&O- Last 24 Hours up to 6 AM 09/19/21 06:00 Intake Total 1380 ml Output Total 0 ml Balance 1380 ml Discharge Medications Scheduled Acetaminophen (Acetaminophen 8 Hour) 650 Mg Tablet.er, 650 MG PO Q8H, (Reported) Amlodipine Besylate (Amlodipine Besylate) 5 Mg Tablet, 5 MG PO QHS, (Reported) Amoxicillin/Potassium Clav (Augmentin 875-125 Tablet) 1 Each Tablet, 1 TAB PO B ID Aspirin (Aspirin EC) 81 Mg Tablet.dr, 81 MG PO DAILY, (Reported) Calcium Carbonate/Vitamin D3 (Calcium 500-Vit D3 200 Tablet) 1 Each Tablet, 1 TAB PO BID, (Reported) TAKES AM/1430 Cetirizine HCl (Cetirizine HCl) 10 Mg Tablet, 10 MG PO DAILY, (Reported) Colchicine (Colchicine) 0.6 Mg Tablet, 0.3 MG PO DAILY, (Reported) Docusate Sodium (Docusate Sodium) 100 Mg Capsule, 100 MG PO BID, (Reported) Dorzolamide HCl/Timolol Maleat (Cosopt Eye Drops) 10 Ml Drops, 1 DROP OU BID, (Reported) Finasteride (Finasteride) 5 Mg Tablet, 5 MG PO DAILY, (Reported) Fluticasone Propionate (Flonase Allergy Relief) 9.9 Ml Butler.susp, 2 SPRAY NARES DAILY, (Reported) Isosorbide Mononitrate (Isosorbide Mononitrate ER) 60 Mg Tab.er.24h, 60 MG PO DAILY, (Reported) L.acidoph/L.bulg/B.bif/S.therm (Bacid Caplet) 1 Each Tablet, 1 TAB PO WM Multivitamins (Thera M Plus Tablet) 1 Each Tablet, 1 TAB PO BID, (Reported) Prednisolone Acetate (Prednisolone Acetate 1% Opth Susp) 5 Ml Drops.susp, 1 DROP OU Q12H, (Reported) Rosuvastatin Calcium (Rosuvastatin Calcium) 20 Mg Tablet, 20 MG PO QHS, (Reported) Tamsulosin HCl (Flomax) 0.4 Mg Capsule, 0.4 MG PO QHS, (Reported) Trazodone HCl (Trazodone HCl) 50 Mg Tablet, 50 MG PO QHS, (Reported) Scheduled PRN Albuterol Sulfate (Ventolin Hfa) 18 Gm Hfa.aer.ad, 2 PUFFS INH TID PRN for SOB/WHEEZING, (Reported) Carboxymethylcellulos/Glycerin (Refresh Optive Gel Eye Drops) 10 Ml Drops.gel, 1 DROP OU QID PRN for DRY EYES, (Reported) Nitroglycerin (Nitrostat) 0.4 Mg Tab.subl, 0.4 MG SL Q5MP PRN for CHEST PAIN, (Reported) Polyethylene Glycol 3350 (Miralax) 119 Gm Powder, 17 GRAM PO DAILY PRN for CONSTIPATION dissolve in water Tramadol HCl (Tramadol HCl) 50 Mg Tablet, 50 MG PO Q12HP PRN for MODERATE PAIN (PS 5-7) Allergies Coded Allergies: meperidine (Verified Adverse Reaction, Mild, prolonged sleep, 08/31/21) SONYA TORRES MD Sep 19, 2021 13:40
[2021-09-19] MEDS ORDERED: MIRA3350 PO (13:45)
[2021-09-19] MEDS ORDERED: GLYCERIN ADULT SUPP PR ONE (16:00)
== END 2021-09-19 16:05 | disposition home health service (06) | DRG 444 ==
LOC: M ED 10:49 → M ED INP 14:37 → M MSPAV 22:49
PROVIDERS: ADMIT General Practice; ATTEND Family Medicine
PROC: 0F903ZX Drainage of Liver, Percutaneous Approach, Diagnostic (ICD-10-PCS; principal; 2021-09-04 15:00)
DX: K81.1 Chronic cholecystitis (principal); K75.0 Abscess of liver; N17.9 Acute kidney failure, unspecified; E87.2 Acidosis; N13.30 Unspecified hydronephrosis; R29.6 Repeated falls; R53.81 Other malaise; R26.89 Other abnormalities of gait and mobility; D63.8 Anemia in other chronic diseases classified elsewhere; I25.10 Atherosclerotic heart disease of native coronary artery without angina pectoris; I25.2 Old myocardial infarction; H54.8 Legal blindness, as defined in USA; E78.5 Hyperlipidemia, unspecified; I12.9 Hypertensive chronic kidney disease with stage 1 through stage 4 chronic kidney disease, or unspecified chronic kidney disease; N18.30 Chronic kidney disease, stage 3 unspecified; H40.9 Unspecified glaucoma; I35.0 Nonrheumatic aortic (valve) stenosis; N40.0 Benign prostatic hyperplasia without lower urinary tract symptoms; L57.0 Actinic keratosis; J30.2 Other seasonal allergic rhinitis; K64.9 Unspecified hemorrhoids; Z20.822 Contact with and (suspected) exposure to COVID-19; Z79.82 Long term (current) use of aspirin; Z85.820 Personal history of malignant melanoma of skin; Z79.899 Other long term (current) drug therapy; Z88.8 Allergy status to other drugs, medicaments and biological substances; Z95.1 Presence of aortocoronary bypass graft

== ENCOUNTER → 2022-01-16 | Outpatient (CLI) | payer OTHER ==
[~2022-01-16] MED LIST: AMLO1TAB24 PO; ARTIDRO OU; ASPI81TA26 PO; AUGM875T28 PO; BACITAB PO; BRIM2OPD OP; CETI-24 PO; COLC0.6T47 PO; COSO1SOL3 OU; DOCU100C16 PO; FINA5TAB2 PO; FLOM0.4C39 PO; FLON1SPR NARES; ISOS1TAB36 PO; ISOVUE-370 76% 100ML VIAL As Ordered ONE; MIRA3350 PO; NITR4TASL SL; OYST500T92 PO; PREDOPD OU; QC A650T3 PO; RAMI1CAP21 PO; REFR1GEL OU; ROSU20TA5 PO; TRAM50TA2 PO; TRAZ-186 PO; VENTAER INH; VITMTA PO; XALA0.007 OP
== END ==
LOC: M RAD 08:21
PROVIDERS: ATTEND Surgery
DX: K80.20 Calculus of gallbladder without cholecystitis without obstruction (principal); K75.0 Abscess of liver
CPT/HCPCS: 74178; Q9967

== ENCOUNTER → 2022-01-31 | Outpatient (CLI) | payer OTHER ==
[~2022-01-31] MED LIST changes: -ISOVUE-370 76% 100ML VIAL As Ordered ONE; +LIDOCAINE 1% MDV 20ML VIAL As Ordered ONE
[2022-01-31 12:42] LABS: BASO % 0.6 % (0.0-1.0); EOS # 0.7 10^3/uL (0.0-0.5); EOS % 10.7 % (0.0-3.0); HEMATOCRIT 34.9 % (42.0-52.0); HEMOGLOBIN 11.6 g/dl (13.5-17.5); LYMPH # 1.6 10^3/uL (1.5-5.0); LYMPH % 24.7 % (24.0-44.0); MEAN CORPUSCULAR HEMOGLOBIN 33.2 pg (27.0-33.0); MEAN CORPUSCULAR HGB CONC 33.2 g/dl (32.0-36.5); MONO # 0.7 10^3/uL (0.0-0.8); MONO % 10.3 % (2.0-8.0); NEUTROPHILS # 3.5 10^3/uL (1.5-8.5); NEUTROPHILS % 53.4 % (36.0-66.0); PLATELET COUNT, AUTOMATED 157 10^3/uL (150-450); RED BLOOD COUNT 3.49 10^6/uL (4.30-6.10); WHITE BLOOD COUNT 6.6 10^3/uL (4.0-10.0)
[2022-01-31 13:45] VITALS: BP 146/72
== END ==
LOC: M IRPRO 11:44
PROVIDERS: ATTEND Internal Medicine Medical Oncology
DX: D64.9 Anemia, unspecified (principal)

== ENCOUNTER → 2022-03-20 | Outpatient (REF) | payer MEDICARE, OTHER ==
[~2022-03-20] MED LIST changes: -LIDOCAINE 1% MDV 20ML VIAL As Ordered ONE
== END ==
LOC: M LAB REF 16:27
PROVIDERS: ATTEND Surgery
DX: C44.622 Squamous cell carcinoma of skin of right upper limb, including shoulder (principal)

== ENCOUNTER → 2022-06-12 | Outpatient (REF) | payer MEDICARE, OTHER | LOC: M LAB REF 15:40 | PROVIDERS: ATTEND Surgery | DX: C44.612 Basal cell carcinoma of skin of right upper limb, including shoulder (principal) ==

== ENCOUNTER 2022-08-13 12:25 | Emergency (ER) | payer MEDICARE, OTHER ==
[~2022-08-13] VITALS: Ht 182.9 cm; Wt 88.2 kg
[~2022-08-13 12:25] MED LIST changes: +ALBU2.5V10 NEB; +NEBU1EAC78 MC; +PRED20TA PO
[2022-08-13] MEDS ORDERED: NYST1POW9 TOP (18:50)
[2022-08-13 19:09] VITALS: BP 162/85
== END 2022-08-13 19:10 | disposition home or self-care (01) ==
LOC: EDBD 12:25 → M ED 12:25
DX: N50.89 Other specified disorders of the male genital organs (principal); R35.0 Frequency of micturition; I10 Essential (primary) hypertension; E78.5 Hyperlipidemia, unspecified; I25.2 Old myocardial infarction; M54.9 Dorsalgia, unspecified; Z87.442 Personal history of urinary calculi; Z88.8 Allergy status to other drugs, medicaments and biological substances; Z79.51 Long term (current) use of inhaled steroids; Z79.899 Other long term (current) drug therapy; Z79.82 Long term (current) use of aspirin

== ENCOUNTER → 2023-02-22 | Outpatient (REF) | payer MEDICARE, OTHER ==
[~2023-02-22] MED LIST changes: +ACET-683 PO; +AUGM500T34 PO; -COSO1SOL3 OU; +DORZ10DR10 OU; +MELA3TAB49 PO; +NYST1POW9 TOP
== END ==
LOC: M SFHCDERM 16:32
PROVIDERS: ATTEND Nurse Practitioner Family
DX: C44.311 Basal cell carcinoma of skin of nose (principal)

== ENCOUNTER 2023-03-16 13:18 | Observation (INO) | payer MEDICARE ==
[~2023-03-16] VITALS: Ht 182.9 cm; Wt 88.0 kg
[2023-03-16 14:17] LABS: BASO % 0.2 % (0.0-1.0); EOS # 0.3 10^3/uL (0.0-0.5); EOS % 3.1 % (0.0-3.0); HEMATOCRIT 34.7 % (42.0-52.0); HEMOGLOBIN 11.8 g/dl (13.5-17.5); LYMPH # 0.7 10^3/uL (1.5-5.0); LYMPH % 7.8 % (24.0-44.0); MEAN CORPUSCULAR HEMOGLOBIN 34.2 pg (27.0-33.0); MEAN CORPUSCULAR VOLUME 100.6 fl (80.0-96.0); MONO # 0.9 10^3/uL (0.0-0.8); MONO % 9.8 % (2.0-8.0); NEUTROPHILS # 7.2 10^3/uL (1.5-8.5); NEUTROPHILS % 78.9 % (36.0-66.0); PLATELET COUNT, AUTOMATED 164 10^3/uL (150-450); RED BLOOD COUNT 3.45 10^6/uL (4.30-6.10); WHITE BLOOD COUNT 9.1 10^3/uL (4.0-10.0)
[2023-03-16 14:30] LABS: CK-MB VALUE MASS 3.2 NG/ML (<3.6)
[2023-03-16 14:31] LABS: ALBUMIN 3.7 G/DL (3.2-5.2); BILIRUBIN,DIRECT 0.1 MG/DL (<0.4); BILIRUBIN,TOTAL 0.4 MG/DL (0.3-1.2); CALCIUM LEVEL 8.5 MG/DL (8.3-10.6); CREATININE FOR GFR 1.25 MG/DL (0.70-1.30); GLOMERULAR FILTRATION RATE 57.9 (>35); POTASSIUM SERUM 4.4 MMOL/L (3.5-5.1); TOTAL PROTEIN 6.3 G/DL (5.7-8.2)
[2023-03-16 14:33] LABS: THYROID STIMULATING HORMONE 1.998 uIU/ML (0.55-4.78)
[2023-03-16] MEDS ORDERED: IPRATROPIUM 0.02% SOLN 0.5MG 2.5ML NEB NEB ONE (14:35)
[2023-03-16] MEDS ORDERED: ALBUTEROL SULFATE 2.5MG/0.5ML INH NEB SOLN NEB ONE (14:35)
[2023-03-16 14:36] LABS: INR 0.9; PROTHROMBIN TIME 12.3 SECONDS (12.5-14.5)
[2023-03-16 14:39] LABS: MB/CK RELATIVE INDEX 1.07 (< OR =4)
[2023-03-16] MEDS ORDERED: ISOVUE-370 76% 100ML VIAL As Ordered ONE (14:59)
[2023-03-16 15:26] LABS: CK-MB VALUE MASS 3.4 NG/ML (<3.6)
[2023-03-16 15:29] LABS: MB/CK RELATIVE INDEX 1.17 (< OR =4)
[2023-03-16] MEDS ORDERED: GUAI100S51 PO (16:37)
[2023-03-16] MEDS ORDERED: AMLO1TAB25 PO (16:37)
[2023-03-16] MEDS ORDERED: MELA3TAB30 PO (16:37)
[2023-03-16] MEDS ORDERED: CALCD50TA PO (16:37)
[2023-03-16] MEDS ORDERED: ARTIDRO OU (16:37)
[2023-03-16] MEDS ORDERED: RAMI1CAP21 PO (16:37)
[2023-03-16] MEDS ORDERED: HOME MED LIST COMPLETE! XX SCH (16:40)
[2023-03-16] MEDS ORDERED: AZITHROMYCIN 250MG TABLET PO ONE (16:45)
[2023-03-16] MEDS ORDERED: cefTRIAXone SOD 1 GM in D5W MINI-BAG PLUS 50 ML IV ONE (16:45)
[2023-03-16] MEDS ORDERED: ACETAMINOPHEN TAB 650MG DOSE (2X325MG) PO PRN (17:25)
[2023-03-16] MEDS ORDERED: NITROGLYCERIN 0.4MG SUBL TABLET SL PRN (17:25)
[2023-03-16] MEDS ORDERED: DOCUSATE SODIUM 100MG CAPSULE PO PRN (17:25)
[2023-03-16] MEDS ORDERED: IPRATROPIUM 0.5MG/ALBUTEROL 2.5MG INH SOL UD 3ML (DUONEB) NEB PRN (17:25)
[2023-03-16] MEDS ORDERED: PILL CUTTER 1 EACH XX PRN (18:30)
[2023-03-16] MEDS: FINASTERIDE 5MG TAB PO SCH (19:01)
[2023-03-16] MEDS: methylPREDNISolone 40MG 1ML VIAL IV SCH (19:55)
[2023-03-16] MEDS: IPRATROPIUM 0.5MG/ALBUTEROL 2.5MG INH SOL UD 3ML (DUONEB) NEB SCH (20:42)
[2023-03-16] MEDS ORDERED: prednisoLONE ACET 1% OPHTH SUSP 5ML OU SCH (21:00)
[2023-03-16] MEDS ORDERED: COSOPT OCUMETER PLUS 10ML (DORZOLAMIDE/TIMOLOL) OU SCH (21:00)
[2023-03-16] MEDS: traZODone 50 MG TAB PO SCH (21:10)
[2023-03-16] MEDS: TAMSULOSIN 0.4 MG CAP PO SCH (21:10)
[2023-03-16] MEDS: ROSUVASTATIN 10 MG TAB (CRESTOR) PO SCH (21:11)
[2023-03-16] MEDS: MULTIVITAMINS/MINERALS THERAP 1 TAB PO SCH (21:11)
[2023-03-16] MEDS: RAMELTEON 8 MG TAB (ROZEREM) PO SCH (21:11)
[2023-03-16 21:40] VITALS: BP 134/86
[2023-03-16] MEDS: ramipriL 1.25 MG CAP PO SCH (23:06)
[2023-03-16] MEDS: guaiFENesin SYRUP 200MG 10ML UDC PO SCH (23:07)
[2023-03-16] MEDS: HEPARIN SOD (PORCINE) 5000UNITS/ML 1ML VIAL/SYRINGE SC SCH (23:10)
[2023-03-17] MEDS: guaiFENesin SYRUP 200MG 10ML UDC PO SCH ×6 (01:00→20:06)
[2023-03-17] MEDS: IPRATROPIUM 0.5MG/ALBUTEROL 2.5MG INH SOL UD 3ML (DUONEB) NEB SCH ×4 (02:55→20:38)
[2023-03-17 05:19] LABS: HEMATOCRIT 32.9 % (42.0-52.0); HEMOGLOBIN 11.2 g/dl (13.5-17.5); MEAN CORPUSCULAR HEMOGLOBIN 33.7 pg (27.0-33.0); MEAN CORPUSCULAR VOLUME 99.1 fl (80.0-96.0); PLATELET COUNT, AUTOMATED 160 10^3/uL (150-450); RED BLOOD COUNT 3.32 10^6/uL (4.30-6.10); WHITE BLOOD COUNT 9.4 10^3/uL (4.0-10.0)
[2023-03-17] MEDS: HEPARIN SOD (PORCINE) 5000UNITS/ML 1ML VIAL/SYRINGE SC SCH ×3 (05:33→22:00)
[2023-03-17 05:40] VITALS: BP 108/64
[2023-03-17 05:52] LABS: ALBUMIN 3.2 G/DL (3.2-5.2); ALKALINE PHOSPHATASE 43 U/L (46-116); ALT/SGPT 18 U/L (7.0-40); AST/SGOT 21 U/L (<34); BILIRUBIN,TOTAL 0.4 MG/DL (0.3-1.2); BLOOD UREA NITROGEN 31 MG/DL (9-23); CALCIUM LEVEL 8.6 MG/DL (8.3-10.6); CARBON DIOXIDE LEVEL 24 MMOL/L (20-31); CHLORIDE LEVEL 108 MMOL/L (98-107); CREATININE FOR GFR 1.21 MG/DL (0.70-1.30); GLOMERULAR FILTRATION RATE > 60.0 (>35); GLUCOSE, FASTING 126 MG/DL (74-106); MAGNESIUM LEVEL 2.3 MG/DL (1.8-2.4); POTASSIUM SERUM 4.2 MMOL/L (3.5-5.1); SODIUM LEVEL 141 MMOL/L (136-145); TOTAL PROTEIN 5.7 G/DL (5.7-8.2)
[2023-03-17] MEDS: COSOPT OCUMETER PLUS 10ML (DORZOLAMIDE/TIMOLOL) OU SCH ×2 (08:30→17:26)
[2023-03-17] MEDS: methylPREDNISolone 40MG 1ML VIAL IV SCH ×2 (09:21→20:14)
[2023-03-17] MEDS: ASPIRIN 81MG ENTERIC TABLET PO SCH (09:22)
[2023-03-17] MEDS: AZITHROMYCIN 250MG TABLET PO SCH (09:22)
[2023-03-17] MEDS: MULTIVITAMINS/MINERALS THERAP 1 TAB PO SCH ×2 (09:22→20:06)
[2023-03-17] MEDS: TAMSULOSIN 0.4 MG CAP PO SCH ×2 (09:22→20:12)
[2023-03-17] MEDS: prednisoLONE ACET 1% OPHTH SUSP 5ML OU SCH ×2 (09:23→18:34)
[2023-03-17] MEDS: FLUTICASONE PROP 0.05% NASAL SPRAY 16 GM (FLONASE) NARES SCH (09:24)
[2023-03-17] MEDS: ISOSORBIDE MON. (IMDUR) 60MG XR TAB PO SCH (09:28)
[2023-03-17] MEDS: COLCHICINE 0.6 MG TABLET PO SCH (09:29)
[2023-03-17] MEDS: FINASTERIDE 5MG TAB PO SCH (13:11)
[2023-03-17 14:00] VITALS: BP 128/77
[2023-03-17] MEDS ORDERED: AZIT-12 PO (14:54)
[2023-03-17] MEDS ORDERED: AMOX875T2 PO (14:56)
[2023-03-17] MEDS ORDERED: SYMB80INH INH (15:05)
[2023-03-17] MEDS ORDERED: PRED20TA PO (15:05)
[2023-03-17] MEDS ORDERED: cefTRIAXone SOD 2 GM in D5W MINI-BAG PLUS 50 ML IV ONE (16:00)
[2023-03-17] MEDS ORDERED: cefTRIAXone SOD 2 GM in D5W MINI-BAG PLUS 50 ML IV SCH (17:00)
[2023-03-17] MEDS: ramipriL 1.25 MG CAP PO SCH (20:08)
[2023-03-17] MEDS: RAMELTEON 8 MG TAB (ROZEREM) PO SCH (20:09)
[2023-03-17] MEDS: ROSUVASTATIN 10 MG TAB (CRESTOR) PO SCH (20:12)
[2023-03-17] MEDS: traZODone 50 MG TAB PO SCH (20:13)
[2023-03-17 20:22] VITALS: BP 110/56
[2023-03-18] MEDS: guaiFENesin SYRUP 200MG 10ML UDC PO SCH ×6 (01:12→21:43)
[2023-03-18] MEDS: IPRATROPIUM 0.5MG/ALBUTEROL 2.5MG INH SOL UD 3ML (DUONEB) NEB SCH ×4 (02:58→19:39)
[2023-03-18 03:49] VITALS: BP 165/105
[2023-03-18 04:18] VITALS: BP 146/99
[2023-03-18 05:00] VITALS: BP 132/83
[2023-03-18] MEDS: HEPARIN SOD (PORCINE) 5000UNITS/ML 1ML VIAL/SYRINGE SC SCH ×3 (05:21→21:44)
[2023-03-18] MEDS: prednisoLONE ACET 1% OPHTH SUSP 5ML OU SCH ×2 (09:00→17:59)
[2023-03-18] MEDS: methylPREDNISolone 40MG 1ML VIAL IV SCH ×2 (09:01→21:44)
[2023-03-18] MEDS: AZITHROMYCIN 250MG TABLET PO SCH (09:02)
[2023-03-18] MEDS: ASPIRIN 81MG ENTERIC TABLET PO SCH (09:02)
[2023-03-18] MEDS: TAMSULOSIN 0.4 MG CAP PO SCH ×2 (09:02→21:51)
[2023-03-18] MEDS: COSOPT OCUMETER PLUS 10ML (DORZOLAMIDE/TIMOLOL) OU SCH ×2 (09:02→17:59)
[2023-03-18] MEDS: ISOSORBIDE MON. (IMDUR) 60MG XR TAB PO SCH (09:02)
[2023-03-18] MEDS: MULTIVITAMINS/MINERALS THERAP 1 TAB PO SCH ×2 (09:02→21:51)
[2023-03-18] MEDS: COLCHICINE 0.6 MG TABLET PO SCH (09:03)
[2023-03-18] MEDS: FLUTICASONE PROP 0.05% NASAL SPRAY 16 GM (FLONASE) NARES SCH (09:09)
[2023-03-18 14:00] VITALS: BP 103/67
[2023-03-18] MEDS: FINASTERIDE 5MG TAB PO SCH (14:13)
[2023-03-18] MEDS ORDERED: cefTRIAXone SOD 2 GM in D5W MINI-BAG PLUS 50 ML IV SCH (15:00)
[2023-03-18 20:00] VITALS: BP 137/88
[2023-03-18 21:49] VITALS: BP 138/88
[2023-03-18] MEDS: ramipriL 1.25 MG CAP PO SCH (21:49)
[2023-03-18] MEDS: traZODone 50 MG TAB PO SCH (21:51)
[2023-03-18] MEDS: ROSUVASTATIN 10 MG TAB (CRESTOR) PO SCH (21:51)
[2023-03-18] MEDS: RAMELTEON 8 MG TAB (ROZEREM) PO SCH (21:51)
[2023-03-19] MEDS: IPRATROPIUM 0.5MG/ALBUTEROL 2.5MG INH SOL UD 3ML (DUONEB) NEB SCH ×2 (01:59→07:55)
[2023-03-19] MEDS: guaiFENesin SYRUP 200MG 10ML UDC PO SCH ×3 (02:13→08:46)
[2023-03-19 06:00] VITALS: BP 138/91
[2023-03-19] MEDS: HEPARIN SOD (PORCINE) 5000UNITS/ML 1ML VIAL/SYRINGE SC SCH (06:04)
[2023-03-19 06:22] LABS: HEMATOCRIT 34.6 % (42.0-52.0); HEMOGLOBIN 11.8 g/dl (13.5-17.5); LYMPH # 0.7 10^3/uL (1.5-5.0); LYMPH % 7.6 % (24.0-44.0); MEAN CORPUSCULAR HEMOGLOBIN 33.9 pg (27.0-33.0); MEAN CORPUSCULAR HGB CONC 34.1 g/dl (32.0-36.5); MEAN CORPUSCULAR VOLUME 99.4 fl (80.0-96.0); MONO # 0.5 10^3/uL (0.0-0.8); MONO % 5.5 % (2.0-8.0); NEUTROPHILS # 8.4 10^3/uL (1.5-8.5); NEUTROPHILS % 86.1 % (36.0-66.0); PLATELET COUNT, AUTOMATED 177 10^3/uL (150-450); RED BLOOD COUNT 3.48 10^6/uL (4.30-6.10); WHITE BLOOD COUNT 9.8 10^3/uL (4.0-10.0)
[2023-03-19 06:44] LABS: ALBUMIN 3.2 G/DL (3.2-5.2); ALKALINE PHOSPHATASE 46 U/L (46-116); ALT/SGPT 22 U/L (7.0-40); AST/SGOT 25 U/L (<34); BILIRUBIN,TOTAL 0.3 MG/DL (0.3-1.2); BLOOD UREA NITROGEN 37 MG/DL (9-23); CARBON DIOXIDE LEVEL 24 MMOL/L (20-31); CHLORIDE LEVEL 106 MMOL/L (98-107); GLOMERULAR FILTRATION RATE > 60.0 (>35); GLUCOSE, FASTING 139 MG/DL (74-106); MAGNESIUM LEVEL 2.2 MG/DL (1.8-2.4); POTASSIUM SERUM 4.6 MMOL/L (3.5-5.1); SODIUM LEVEL 141 MMOL/L (136-145); TOTAL PROTEIN 5.9 G/DL (5.7-8.2)
[2023-03-19] MEDS: MULTIVITAMINS/MINERALS THERAP 1 TAB PO SCH (08:46)
[2023-03-19] MEDS: ASPIRIN 81MG ENTERIC TABLET PO SCH (08:46)
[2023-03-19] MEDS: methylPREDNISolone 40MG 1ML VIAL IV SCH (08:46)
[2023-03-19] MEDS: TAMSULOSIN 0.4 MG CAP PO SCH (08:46)
[2023-03-19] MEDS: COSOPT OCUMETER PLUS 10ML (DORZOLAMIDE/TIMOLOL) OU SCH (08:47)
[2023-03-19] MEDS: prednisoLONE ACET 1% OPHTH SUSP 5ML OU SCH (08:47)
[2023-03-19] MEDS: ISOSORBIDE MON. (IMDUR) 60MG XR TAB PO SCH (08:47)
[2023-03-19] MEDS: COLCHICINE 0.6 MG TABLET PO SCH (08:47)
[2023-03-19] MEDS: AZITHROMYCIN 250MG TABLET PO SCH (08:47)
[2023-03-19] MEDS: FLUTICASONE PROP 0.05% NASAL SPRAY 16 GM (FLONASE) NARES SCH (08:48)
[2023-03-20] MEDS ORDERED: predniSONE 20 MG TAB PO SCH (09:00)
== END 2023-03-19 12:40 | disposition home or self-care (01) ==
LOC: EDBD 13:18 → M ED 13:18 → EDSEX 13:18 → M ED INP 13:19 → ENRESERV 21:05 → M MSPAV 21:38
PROVIDERS: ADMIT Family Medicine; ATTEND Internal Medicine
DX: J18.9 Pneumonia, unspecified organism (principal); J44.1 Chronic obstructive pulmonary disease with (acute) exacerbation; B97.10 Unspecified enterovirus as the cause of diseases classified elsewhere; B97.89 Other viral agents as the cause of diseases classified elsewhere; I11.0 Hypertensive heart disease with heart failure; I25.10 Atherosclerotic heart disease of native coronary artery without angina pectoris; I50.30 Unspecified diastolic (congestive) heart failure; E78.5 Hyperlipidemia, unspecified; N40.0 Benign prostatic hyperplasia without lower urinary tract symptoms; H54.7 Unspecified visual loss; R60.0 Localized edema; Z79.899 Other long term (current) drug therapy; Z79.82 Long term (current) use of aspirin; Z88.5 Allergy status to narcotic agent
CPT/HCPCS: 36415; 71045; 71275; 80048; 80053; 80076; 82550; 82553; 83605; 83735; 83880; 84145; 84436; 84443; 84484; 85025; 85027; 85610; 87040; 87070; 87077; 87186; 87205; 87486; 87581; 87633; 87798; 93005; 93041; 94640; 94760; 96372; 96374; 96375; 96376; 97161; 97530; 99285; G0378; J0696; J2920; Q9967